=== PATIENT | male | born 1965 | race Hispanic/Latino ===

== ENCOUNTER 2017-12-29 19:15 | Emergency (ER) | payer MEDICAID ==
[2017-12-29 19:15] VITALS: BMI 34.7
[2017-12-29 19:34] VITALS: RESP 18; TEMP 98.3; O2SAT 95
[2017-12-29] MEDS ORDERED: Nitroglycerin 2% Ointment Foilpak UD TOP STA (19:36)
--- NOTE | 2017-12-29 19:47 | ED PDOC ---
Arrival/HPI - General Chief Complaint: Chest Pain Time Seen by Provider: 12/29/17 19:27 Historian: Patient - History of Present Illness Narrative History of Present Illness (Text): 12/29/17 19:34 A 52 year old male, whose past medical history includes diabetes, hypertension, multiple sclerosis, and psoriasis, presents to the emergency department complaining of intermittent chest discomfort since this afternoon. Patient describes discomfort as pressure-like sensation and non-radiating. Patient denies any associated shortness of breath fever, chills, cough, leg pain, or any other complaints at this time. No PMD Past Medical History - Provider Review Nursing Documentation Reviewed: Yes - Infectious Disease Hx of Infectious Diseases: None - Tetanus Immunization Tetanus Immunization: Unknown - Cardiac Hx Hypertension: Yes - Pulmonary Hx Respiratory Disorders: No Other/Comment: seasonal allergy - Neurological Hx Neurological Disorder: No Hx Alzheimer's Disease: No HX Cerebrovascular Accident: No Hx Dementia: No Hx Dizziness: No Hx Meningitis: No Hx Migraine: No Hx Multiple Sclerosis: Yes Hx Parkinson's Disease: No Hx Seizures: No Hx Transient Ischemic Attacks (TIA): No - HEENT Hx HEENT Disorder: No Hx Blind: No Hx Cataracts: No Hx Deafness: No Hx Difficulty Chewing: No Hx Epistaxis: No Hx Glaucoma: No Hx Macular Degeneration: No - Renal Hx Kidney Stones: Yes - Endocrine/Metabolic Hx Endocrine Disorders: No - Hematological/Oncological Hx Blood Disorders: No Hx AIDS: No Hx Anemia: No Hx Cancer: No Hx Chemotherapy: No Hx Cirrhosis: No Hx Hepatitis A: No Hx Hepatitis B: No Hx Hepatitis C: No Hx Metastasis: No Hx Shingles: No Hx Unexplained Bleeding: No - Integumentary Hx Psoriasis: Yes - Musculoskeletal/Rheumatological Hx Falls: Yes - Gastrointestinal Hx Gastrointestinal Disorders: Yes Other/Comment: polyps in colon - Genitourinary/Gynecological Hx Genitourinary Disorders: No Hx Hematuria: No Hx Incontinence: No Hx Prostate Problems: No Hx Sexually Transmitted Diseases: No Hx Urinary Tract Infection: No - Psychiatric Hx Post Traumatic Stress Disorder: Yes Hx Substance Use: No - Surgical History Other/Comment: lithotripsy. polyp removal from colon - Anesthesia Hx Anesthesia Reactions: Yes Hx Malignant Hyperthermia: No - Suicidal Assessment Feels Threatened In Home Enviroment: No Family/Social History - Physician Review Nursing Documentation Reviewed: Yes Family/Social History: No Known Family HX Smoking Status: Never Smoked Hx Alcohol Use: No Hx Substance Use: No Hx Substance Use Treatment: No Allergies/Home Meds Allergies/Adverse Reactions: Allergies No Known Allergies Allergy (Verified 05/26/16 12:53) Home Medications: Home Meds Medication Instructions Recorded Confirmed Multivitamin and Minerals1 1 tab PO DAILY 09/29/13 10/02/13 [Centrum] Cyclobenzaprine [Flexeril] 10 mg PO BID 05/26/16 05/26/16 Pantoprazole Sodium [Protonix] 40 mg PO DAILY 05/26/16 05/26/16 Primidone [Mysoline] 50 mg PO DAILY 05/26/16 05/26/16 Review of Systems - Physician Review All systems were reviewed & negative as marked: Yes - Review of Systems Constitutional: absent: Fevers, Night Sweats Respiratory: absent: SOB, Cough Cardiovascular: Chest Pain (chest discomfort) Gastrointestinal: absent: Abdominal Pain Musculoskeletal: absent: Back Pain, Neck Pain, Other (no leg pain) Physical Exam Vital Signs Reviewed: Yes Vital Signs Temp Pulse Resp BP Pulse Ox 12/29/17 21:04 100 H 198/139 H 12/29/17 20:18 101 H 18 188/139 H 95 12/29/17 19:46 107 H 211/139 H 12/29/17 19:33 98.3 F 103 H 18 212/140 H 95 Temperature: Afebrile Blood Pressure: Hypertensive Pulse: Regular Respiratory Rate: Normal Appearance: Positive for: Well-Appearing, Non-Toxic, Comfortable Pain Distress: None Mental Status: Positive for: Alert and Oriented X 3 - Systems Exam Head: Present: Atraumatic, Normocephalic Pupils: Present: PERRL Extroacular Muscles: Present: EOMI Conjunctiva: Present: Normal Mouth: Present: Moist Mucous Membranes Neck: Present: Normal Range of Motion Respiratory/Chest: Present: Clear to Auscultation, Good Air Exchange. No: Respiratory Distress, Accessory Muscle Use Cardiovascular: Present: Regular Rate and Rhythm, Normal S1, S2. No: Murmurs Abdomen: No: Tenderness, Distention, Peritoneal Signs Upper Extremity: Present: Normal Inspection. No: Cyanosis, Edema Lower Extremity: Present: Normal Inspection. No: Edema Neurological: Present: GCS=15, CN II-XII Intact, Speech Normal Skin: Present: Other (patches of psoriasis to head and lower extremities.) Psychiatric: Present: Alert, Oriented x 3, Normal Insight, Normal Concentration Medical Decision Making ED Course and Treatment: 12/29/17 19:37 Impression: 52 year old male with chest discomfort. Plan: -- EKG -- Chest X-ray -- Labs -- Aspirin -- Nitroglycerin -- Lopressor -- Reassess and disposition Progress Notes: EKG: Ordered, reviewed, and independently interpreted the EKG. Rate : 101 BPM Rhythm : Sinus tachycardia. Interpretation : LVH, non-specific St- and T- wave changes. Comparison : No previous EKG for comparison. 12/29/17 21:37 Case discussed with director medical science industrial economist, who is aware and agrees with plan. 12/29/17 21:38 Chest X-ray reviewed, shows no acute processes. Case discussed with Dr. Conn, who is aware and agrees with plan. Accepts pt in to hospitalist service. Pt will go to Telemetry observation for chest pain and uncontrolled hypertension. - Lab Interpretations Lab Results: 12/29/17 17:23 12/29/17 19:26 Lab Results 12/29/17 19:26: Sodium 139, Potassium 4.2, Chloride 97 L, Carbon Dioxide 27, Anion Gap 20, BUN 23 H, Creatinine 1.1, Est GFR ( Amer) > 60, Est GFR ( Non-Af Amer) > 60, Random Glucose 362 H* D, Calcium 9.6, Total Bilirubin 0.5, AST 50, ALT 76 H, Alkaline Phosphatase 104, Lactate Dehydrogenase 624, Total Creatine Kinase 122, Troponin I 0.02 D, Total Protein 8.3, Albumin 4.8, Globulin 3.5, Albumin/Globulin Ratio 1.4 12/29/17 17:23: WBC 8.7, RBC 5.48, Hgb 16.3, Hct 47.0, MCV 85.8, MCH 29.7, MCHC 34.7, RDW 13.2, Plt Count 212, MPV 11.0 12/29/17 17:23: PT 10.8, INR 0.95, APTT 28.6 I have reviewed the lab results: Yes - RAD Interpretation Radiology Orders: 12/29/17 19:37 CHEST PORTABLE [RAD] Stat Director Experimental Medicine: ED Physician - EKG Interpretation Interpreted by ED Physician: Yes Type: 12 lead EKG - Medication Orders Current Medication Orders: Discontinued Medications Aspirin (Aspirin) 325 mg PO ONCE STA Stop: 12/29/17 19:37 Last Admin: 12/29/17 19:46 Dose: 325 mg Clonidine HCl (Catapres) 0.2 mg PO STAT STA Stop: 12/29/17 20:49 Last Admin: 12/29/17 21:04 Dose: 0.2 mg MAR Pulse and Blood Pressure Document 12/29/17 21:04 AD (Rec: 12/29/17 21:04 AD [id number] Pulse Pulse Rate (60-90 beats/min) 100 Blood Pressure Blood Pressure (100/60-150/90 mm Hg) 198/139 Insulin Human Regular (Humulin R) 6 units SC STAT STA Stop: 12/29/17 20:49 Last Admin: 12/29/17 21:03 Dose: 6 unit MAR Blood Glucose Document 12/29/17 21:03 AD (Rec: 12/29/17 21:03 AD [id number] Blood Glucose Finger Stick Blood Glucose (70-120) 364 Subcutaneous Administrations Document 12/29/17 21:03 AD (Rec: 12/29/17 21:03 AD [id number]) Injection Site MAR Injection Site Left Arm Charges for Administration # of Subcutaneous Administrations 1 Metoprolol Tartrate (Lopressor) 50 mg PO ONCE STA Stop: 12/29/17 19:37 Last Admin: 12/29/17 19:46 Dose: 50 mg MAR Pulse and Blood Pressure Document 12/29/17 19:46 AD (Rec: 12/29/17 19:48 AD [id number] Pulse Pulse Rate (60-90 beats/min) 107 Blood Pressure Blood Pressure (100/60-150/90 mm Hg) 211/139 Nitroglycerin (Nitro-Bid 2% Oint) 1 ea TOP ONCE STA Stop: 12/29/17 19:37 Last Admin: 12/29/17 19:46 Dose: 1 ea - Scribe Statement The provider has reviewed the documentation as recorded by the Nickibshalom Jaimes Provider Scribe Provider Scribe Attestation: All medical record entries made by the Scribe were at my direction and personally dictated by me. I have reviewed the chart and agree that the record accurately reflects my personal performance of the history, physical exam, medical decision making, and the department course for this patient. I have also personally directed, reviewed, and agree with the discharge instructions and disposition. Disposition/Present on Arrival - Present on Arrival Any Indicators Present on Arrival: No History of DVT/PE: No History of Uncontrolled Diabetes: No Urinary Catheter: No History of Decub. Ulcer: No History Surgical Site Infection Following: None - Disposition Have Diagnosis and Disposition been Completed?: Yes Diagnosis: Chest pain, Uncontrolled hypertension Disposition: HOSPITALIZED Disposition Time: 21:40 Condition: STABLE Discharge Instructions (ExitCare): Chest Pain (ED) Forms: [employer] ([place])
[2017-12-29 19:56] LABS: HEMOGLOBIN 16.3 g/dL (14.0-18.0); MEAN CELL VOLUME 85.8 fl (80.0-105.0); MEAN CORPUSCULAR HEMOGLOBIN 29.7 pg (25.0-35.0); MEAN CORPUSCULAR HGB CONC 34.7 g/dl (31.0-37.0); RBC 5.48 10^6/uL (3.5-6.1); RED CELL DISTRIBUTION WIDTH 13.2 % (11.5-14.5); WHITE BLOOD COUNT 8.7 10^3/ul (4.5-11.0)
[2017-12-29 20:05] LABS: PROTHROMBIN TIME 10.8 SECONDS (9.4-12.5)
[2017-12-29 20:06] LABS: INR 0.95 (0.93-1.08); PARTIAL THROMBOPLASTIN TIME 28.6 Seconds (25.1-36.5)
[2017-12-29 20:08] LABS: ALB/GLOB RATIO 1.4 (1.1-1.8); ALBUMIN 4.8 g/dL (3.0-4.8); ALT/SGPT 76 U/L (7-56); AST/SGOT 50 U/L (17-59); BLOOD UREA NITROGEN 23 mg/dL (7-21); CALCIUM 9.6 mg/dL (8.4-10.5); GFR AFRICAN-AMERICAN > 60; GFR NON-AFRICAN AMERICAN > 60
[2017-12-29 20:17] LABS: TROPONIN I 0.02 ng/mL
[2017-12-29] MEDS ORDERED: Insulin Regular 1 UNITS/0.01 ML ML SC STA (20:48)
[2017-12-29] MEDS ORDERED: Labetalol 5 mg/ml Inj 20ML ONE (22:25)
--- NOTE | 2017-12-29 22:39 | CP.PCM.PN ---
<Noel Gambino - Last Filed: 12/29/17 22:40> Subjective - Date & Time of Evaluation Date of Evaluation: 12/29/17 Time of Evaluation: 22:30 - Subjective Subjective: Noel Gambino DO, PGY-1 IM Resident Progress Note Patient is a 52 year old male with PMH of DM2, HTN, MS, psoriasis who presented to his PCP this afternoon because he wasn't feeling right and had some chest pain. He was evaluated in the ED and recommended for admission by ED physician. When we spoke with him at the bedside, the patient refused admission and is aware that his BP is in the 230s/160s. He states that this is typical for him and refuses admission. The risks of leaving against medical advice, including CVA, loss of life or limb, and were explained in detail, and proper documentation was obtained. Prior to signing AMA paperwork, patient agreed to 20 mg of labetolol and BP was reduced to 160/110. Objective - Vital Signs/Intake and Output Vital Signs (last 24 hours): Temp Pulse Resp BP Pulse Ox 98.3 F 100 H 18 198/139 H 95 12/29/17 19:33 12/29/17 21:04 12/29/17 20:18 12/29/17 21:04 12/29/17 20:18 - Labs Labs: PT 10.8 SECONDS (9.4-12.5) 12/29/17 17:23 INR 0.95 (0.93-1.08) 12/29/17 17:23 APTT 28.6 Seconds (25.1-36.5) 12/29/17 17:23 <Greg Conn - Last Filed: 12/30/17 02:34> Objective - Vital Signs/Intake and Output Vital Signs (last 24 hours): Temp Pulse Resp BP Pulse Ox 98.3 F 89 18 168/122 H 95 12/29/17 19:33 12/29/17 22:50 12/29/17 22:50 12/29/17 22:50 12/29/17 22:50 - Labs Labs: 12/29/17 17:23 12/29/17 19:26 PT 10.8 SECONDS (9.4-12.5) 12/29/17 17:23 INR 0.95 (0.93-1.08) 12/29/17 17:23 APTT 28.6 Seconds (25.1-36.5) 12/29/17 17:23 Attending/Attestation - Attestation I have personally seen and examined this patient.: Yes I have fully participated in the care of the patient.: Yes I have reviewed all pertinent clinical information, including history, physical exam and plan: Yes Notes (Text): 12/30/17 02:34 Patient was seen in the ER in bed # 4. Agree with above documentation.
[2017-12-29 22:51] VITALS: BP 168/122; PULSE 89
--- NOTE | 2017-12-30 08:00 | RAD ---
Date of service: 12/29/2017 HISTORY: fever COMPARISON: 07/27/2015 FINDINGS: LUNGS: No active pulmonary disease. PLEURA: No significant pleural effusion identified, no pneumothorax apparent. CARDIOVASCULAR: Normal. OSSEOUS STRUCTURES: No significant abnormalities. VISUALIZED UPPER ABDOMEN: Normal. OTHER FINDINGS: None. IMPRESSION: No active disease.
--- NOTE | 2017-12-30 22:15 | CARD ---
APPROVED REPORT Date of service: 12/29/2017 EKG Measurement Heart [id number] MD [id number] <Conclusion> Sinus tachycardia Minimal voltage criteria for LVH, may be normal variant Borderline ECG
== END 2017-12-29 22:50 | disposition left against medical advice (07) ==
LOC: ED 19:15 → ERH 21:39 → UNDOADMOB 21:39 → ERH 22:10
DX: I10 Essential (primary) hypertension (principal); R07.9 Chest pain, unspecified; E11.9 Type 2 diabetes mellitus without complications; G35 Multiple sclerosis; L40.9 Psoriasis, unspecified

== ENCOUNTER 2018-08-16 20:19 | Inpatient (IN) | payer MEDICARE, MEDICAID ==
[2018-08-16 20:19] VITALS: BMI 34.7
--- NOTE | 2018-08-16 20:52 | ED PDOC ---
Arrival/HPI - General Chief Complaint: Dizziness/Lightheaded Time Seen by Provider: 08/16/18 20:20 Historian: Patient - History of Present Illness Narrative History of Present Illness (Text): 08/16/18 20:51 Phi Colón is a 53 year old male, whose past medical history includes diabetes, hypertension, multiple sclerosis, and psoriasis, who presents to the Emergency department brought in by EMS for frequent falls and shaking. Patient states he has been having frequent falls recently secondary to his multiple sclerosis and notes this evening while in the kitchen, his legs felt weak and he fell to the ground. Patient also notes some associated chest pressure. Patient notes while attempting to get back up, he felt weak again, fell backwards, and hit the back of his head against a chair. Patient notes he had generalized s haking and states he was unable to get up on his own. Patient notified EMS via his Life Alert. Patient complaining of body aches currently. Patient denies any fever, chills, shortness of breath, nausea, vomiting, diarrhea, urinary symptoms, back pain, neck pain, or any other complaints. PMD: Dr. Jay Jay Peace Symptom Onset: Gradual Symptom Course: Unchanged Activities at Onset: Light Context: Home Past Medical History - Provider Review Nursing Documentation Reviewed: Yes - Infectious Disease Hx of Infectious Diseases: None - Tetanus Immunization Tetanus Immunization: Unknown - Cardiac Hx Hypertension: Yes - Pulmonary Hx Respiratory Disorders: No Other/Comment: seasonal allergy - Neurological Hx Neurological Disorder: No Hx Alzheimer's Disease: No HX Cerebrovascular Accident: No Hx Dementia: No Hx Dizziness: No Hx Meningitis: No Hx Migraine: No Hx Multiple Sclerosis: Yes Hx Parkinson's Disease: No Hx Seizures: No Hx Transient Ischemic Attacks (TIA): No - HEENT Hx HEENT Disorder: No Hx Blind: No Hx Cataracts: No Hx Deafness: No Hx Difficulty Chewing: No Hx Epistaxis: No Hx Glaucoma: No Hx Macular Degeneration: No - Renal Hx Kidney Stones: Yes - Endocrine/Metabolic Hx Endocrine Disorders: No - Hematological/Oncological Hx Blood Disorders: No Hx AIDS: No Hx Anemia: No Hx Cancer: No Hx Chemotherapy: No Hx Cirrhosis: No Hx Hepatitis A: No Hx Hepatitis B: No Hx Hepatitis C: No Hx Metastasis: No Hx Shingles: No Hx Unexplained Bleeding: No - Integumentary Hx Psoriasis: Yes - Musculoskeletal/Rheumatological Hx Falls: Yes - Gastrointestinal Hx Gastrointestinal Disorders: Yes Other/Comment: polyps in colon - Genitourinary/Gynecological Hx Genitourinary Disorders: No Hx Hematuria: No Hx Incontinence: No Hx Prostate Problems: No Hx Sexually Transmitted Diseases: No Hx Urinary Tract Infection: No - Psychiatric Hx Post Traumatic Stress Disorder: Yes Hx Substance Use: No - Surgical History Other/Comment: lithotripsy. polyp removal from colon - Anesthesia Hx Anesthesia Reactions: Yes Hx Malignant Hyperthermia: No - Suicidal Assessment Feels Threatened In Home Enviroment: No Family/Social History - Physician Review Nursing Documentation Reviewed: Yes Family/Social History: Unknown Family HX Smoking Status: Never Smoked Hx Alcohol Use: No Hx Substance Use: No Hx Substance Use Treatment: No Allergies/Home Meds Allergies/Adverse Reactions: Allergies No Known Allergies Allergy (Verified 05/26/16 12:53) Home Medications: Home Meds Medication Instructions Recorded Confirmed Multivitamin and Minerals1 1 tab PO DAILY 09/29/13 10/02/13 [Centrum] Cyclobenzaprine [Flexeril] 10 mg PO BID 05/26/16 05/26/16 Pantoprazole Sodium [Protonix] 40 mg PO DAILY 05/26/16 05/26/16 Primidone [Mysoline] 50 mg PO DAILY 05/26/16 05/26/16 Review of Systems - Physician Review All systems were reviewed & negative as marked: Yes - Review of Systems Constitutional: Normal. absent: Fevers Eyes: Normal ENT: Normal Respiratory: Normal. absent: SOB, Cough Cardiovascular: Chest Pain Gastrointestinal: Normal. absent: Abdominal Pain, Diarrhea, Nausea, Vomiting Genitourinary Male: Normal. absent: Dysuria, Frequency, Hematuria, Urinary Output Changes Musculoskeletal: Myalgias Skin: Normal. absent: Rash Neurological: Other (+frequen falls) Endocrine: Normal Hemo/Lymphatic: Normal Psychiatric: Normal Physical Exam Vital Signs Reviewed: Yes Vital Signs Temp Pulse Resp BP Pulse Ox 08/16/18 20:35 98.1 F 115 H 20 211/145 H 95 Temperature: Afebrile Blood Pressure: Hypertensive Pulse: Tachycardic Respiratory Rate: Normal Appearance: Positive for: Well-Appearing, Non-Toxic, Comfortable Pain Distress: None Mental Status: Positive for: Alert and Oriented X 3 - Systems Exam Head: Present: Atraumatic, Normocephalic Pupils: Present: PERRL Extroacular Muscles: Present: EOMI Conjunctiva: Present: Normal Mouth: Present: Moist Mucous Membranes Neck: Present: Normal Range of Motion Respiratory/Chest: Present: Clear to Auscultation, Good Air Exchange. No: Respiratory Distress, Accessory Muscle Use Cardiovascular: Present: Regular Rate and Rhythm, Normal S1, S2. No: Murmurs Abdomen: No: Tenderness, Distention, Peritoneal Signs Back: Present: Normal Inspection Upper Extremity: Present: Normal Inspection. No: Cyanosis, Edema Lower Extremity: Present: Normal Inspection. No: Edema Neurological: Present: GCS=15, CN II-XII Intact, Speech Normal Skin: Present: Warm, Dry, Rashes (Multiple area of psoriatic rash), Normal Color Psychiatric: Present: Alert, Oriented x 3, Normal Insight, Normal Concentration Medical Decision Making ED Course and Treatment: 08/16/18 20:51 Impression: 53 year old male complaining of generalized weakness, generalized shaking s/p multiple falls. Plan: -- CT Head w/o contrast -- EKG -- Chest X-ray -- Labs, troponin, alcohol level -- Urinalysis, urine cultures -- Reassess and disposition Prior Visits: Notes and results from previous visits were reviewed. Progress Notes: Reviewed EKG, sinus tachycardia at 122 bpm. LVH. Non-specific ST/T wave changes. 08/16/18 23:16 Reviewed radiology, Chest X-ray shows no acute processes. CT Head: BRAIN There is moderate hypodensity in both periventricular, deep and subcortical white matter regions, compatible with moderate microangiopathy. This has increased in comparison with May 26, 2016. No evidence for midline shift or mass effect. No evidence for acute intracranial hemorrhage. VENTRICLES: There is mild prominence of ventricles and sulci compatible with mild atrophy. ORBITS: The orbits are unremarkable. SINUSES AND MASTOIDS: The paranasal sinuses and mastoid air cells are clear. BONES: No fracture. SOFT TISSUES: Unremarkable. MISCELLANEOUS: Again seen are chronic, lacunar infarcts at the left and right anterior subinsular regions. No convincing evidence for acute territorial infarction. IMPRESSION: 1. There is mild prominence of ventricles and sulci compatible with mild atrophy. This is little change from 2016. 2. There is moderate hypodensity in both periventricular, deep and subcortical white matter regions, compatible with moderate microangiopathy. This has increased in comparison with May 26, 2016. 3. Again seen are chronic, lacunar infarcts at the left and right anterior subinsular regions. 4. No convincing evidence for acute intracranial abnormality. Electronically signed on Aug 16, 2018 11:08:31 PM EST by: Blanco Chapa M.D., [place] Certified By [facility] Fellowship Trained MRI and CT Specialist 08/16/18 23:[address] Conn, who is aware and agrees with plan. Accepts pt in to hospitalist service. - Lab Interpretations I have reviewed the lab results: Yes - RAD Interpretation Plate Colorer: ED Physician, Radiologist - EKG Interpretation Interpreted by ED Physician: Yes Type: 12 lead EKG - Scribe Statement The provider has reviewed the documentation as recorded by the Nickibshalom Murrell Provider Scribe Attestation: All medical record entries made by the Scribe were at my direction and personally dictated by me. I have reviewed the chart and agree that the record accurately reflects my personal performance of the history, physical exam, medical decision making, and the department course for this patient. I have also personally directed, reviewed, and agree with the discharge instructions and disposition. Disposition/Present on Arrival - Present on Arrival Any Indicators Present on Arrival: No History of DVT/PE: No History of Uncontrolled Diabetes: No Urinary Catheter: No History of Decub. Ulcer: No History Surgical Site Infection Following: None - Disposition Have Diagnosis and Disposition been Completed?: Yes Diagnosis: Multiple sclerosis, Frequent falls Disposition: HOSPITALIZED Disposition Time: 23:20 Patient Problems: Current Active Problems Problem Status Onset Frequent falls Acute Shaking Acute Condition: GOOD
[2018-08-16 21:17] LABS: BASO # 0.03 K/mm3 (0.0-2.0); BASO % 0.4 % (0.0-3.0); EOS # 0.2 (0.0-0.7); EOS % 2.8 % (1.5-5.0); HEMOGLOBIN 14.6 g/dL (14.0-18.0); LYMPH # 2.3 (1.2-3.4); MEAN CELL VOLUME 84.2 fl (80.0-105.0); MEAN CORPUSCULAR HEMOGLOBIN 28.9 pg (25.0-35.0); MEAN CORPUSCULAR HGB CONC 34.4 g/dl (31.0-37.0); MEAN PLATELET VOLUME 10.4 fl (7.0-11.0); MONO # 0.5 (0.1-0.6); MONO % 6.2 % (1.0-6.0); RBC 5.05 10^6/uL (3.5-6.1); RED CELL DISTRIBUTION WIDTH 13.4 % (11.5-14.5); WHITE BLOOD COUNT 7.4 10^3/uL (4.5-11.0)
[2018-08-16 21:26] LABS: INR 1.03; PARTIAL THROMBOPLASTIN TIME 31.4 Seconds (26.9-38.3); PROTHROMBIN TIME 11.4 SECONDS (9.4-12.5)
[2018-08-16 21:27] LABS: ALB/GLOB RATIO 1.2 (1.1-1.8); ALBUMIN 4.5 g/dL (3.0-4.8); ALT/SGPT 34 U/L (7-56); AST/SGOT 39 U/L (17-59); BLOOD UREA NITROGEN 20 mg/dL (7-21); CALCIUM 9.8 mg/dL (8.4-10.5); GFR NON-AFRICAN AMERICAN 53
[2018-08-16 21:38] LABS: TROPONIN I 0.04 ng/mL
[2018-08-16] MEDS ORDERED: Labetalol 5mg/ml (4ml) ONE (23:24)
[2018-08-16] MEDS ORDERED: Labetalol 5mg/ml (4ml) IV STA (23:24)
--- NOTE | 2018-08-16 23:28 | CP.PCM.HP ---
<Nallely Greenberg - Last Filed: 08/17/18 00:40> History of Present Illness - History of Present Illness History of Present Illness: PGY1 Medicine History and Physical Exam Note for Dr. Conn CC: frequent fall/ shaking Phi Colón is a 53 year old male, whose past medical history includes diabetes, hypertension, multiple sclerosis, and psoriasis, kidney stones, colon polyps, and PTSD, who presents to the Emergency department brought in by EMS for frequent falls and shaking. Today, Patient states that he was making dinner around 6PM, when he began feeling as though his leg was shaking and "caved in," leading him to fall backwards and then forwards. Patient denies loss of consciousness, states that he anticipated the fall, and denies "blacking out." Of note, Patient is non-compliant with his medications, and states he was unable to take them today because he was cleaning his house. Patient also notes some associated chest pressure non-radiating. Patient notes he had generalized tremor and states he was unable to get up on his own. Patient states he notified EMS via his Life Alert. Patient otherwise denies shortness of breath, fever, chills, abdominal pain, nausea, vomiting, diarrhea, dysuria, back pain, neck pain, headache, numbness and/or tingling. PMH: hypertension, multiple sclerosis, psoriasis, kidney stones, colon polyps, and PTSD PSH: Polypectomy 03/2015 Medications: (Patient states he does not recall names of medications and he states he does not have a list with him) Allergies: KNDA Social Hx: Denies tobacco/EtOH/illicit drugs PMD: Dr. Jay Jay Peace Neurologist: Dr. Rogel [facility]acy: [facility] ([place]) Present on Admission - Present on Admission Any Indicators Present on Admission: No History of DVT/PE: No History of Uncontrolled Diabetes: No Urinary Catheter: No Decubitus Ulcer Present: No Review of Systems - Review of Systems All systems: reviewed and no additional remarkable complaints except (as stated in HPI) Past Patient History - Infectious Disease Hx of Infectious Diseases: None - Tetanus Immunizations Tetanus Immunization: Unknown - Past Medical History & Family History Past Medical History?: Yes - Past Social History Smoking Status: Never Smoked - CARDIAC Hx Hypertension: Yes - PULMONARY Hx Respiratory Disorders: No Other/Comment: seasonal allergy - NEUROLOGICAL Hx Neurological Disorder: No Hx Alzheimer's Disease: No HX Cerebrovascular Accident: No Hx Dementia: No Hx Dizziness: No Hx Meningitis: No Hx Migraine: No Hx Multiple Sclerosis: Yes Hx Parkinson's Disease: No Hx Seizures: No Hx Transient Ischemic Attacks (TIA): No - HEENT Hx HEENT Problems: No Hx Blind: No Hx Cataracts: No Hx Deafness: No Hx Difficulty Chewing: No Hx Epistaxis: No Hx Glaucoma: No Hx Macular Degeneration: No - RENAL Hx Kidney Stones: Yes - ENDOCRINE/METABOLIC Hx Endocrine Disorders: No - HEMATOLOGICAL/ONCOLOGICAL Hx Blood Disorders: No Hx AIDS: No Hx Anemia: No Hx Cancer: No Hx Chemotherapy: No Hx Cirrhosis: No Hx Hepatitis A: No Hx Hepatitis B: No Hx Hepatitis C: No Hx Metastesis: No Hx Shingles: No Hx Unexplained Bleeding: No - INTEGUMENTARY Hx Psoriasis: Yes - MUSCULOSKELETAL/RHEUMATOLOGICAL Hx Falls: Yes - GASTROINTESTINAL Hx Gastrointestinal Disorders: Yes Other/Comment: polyps in colon - GENITOURINARY/GYNECOLOGICAL Hx Genitourinary Disorders: No Hx Hematuria: No Hx Incontinence: No Hx Prostate Problems: No Hx Sexually Transmitted Disorders: No Hx Urinary Tract Infection: No - PSYCHIATRIC Hx Post Traumatic Stress Disorder: Yes Hx Substance Use: No - SURGICAL HISTORY Other/Comment: lithotripsy. polyp removal from colon - ANESTHESIA Hx Anesthesia Reactions: Yes Hx Malignant Hyperthermia: No Meds Allergies/Adverse Reactions: Allergies Allergy/AdvReac Type Severity Reaction Status Date / Time No Known Allergies Allergy Verified 05/26/16 12:53 Physical Exam - Constitutional Appears: Non-toxic, Unkempt Additional comments: shaking - Head Exam Head Exam: ATRAUMATIC, NORMAL INSPECTION, NORMOCEPHALIC Additional comments: psoriatic patches (erythematous, silvery scales) on forehead - Eye Exam Eye Exam: EOMI, Normal appearance, PERRL Pupil Exam: NORMAL ACCOMODATION - ENT Exam ENT Exam: Mucous Membranes Moist Additional comments: poor dentition - Neck Exam Neck exam: Positive for: Full Rom, Normal Inspection. Negative for: Tenderness, Thyromegaly Additional comments: psoriatic patches (erythematous, silvery scales) on back of neck - Respiratory Exam Respiratory Exam: Chest Wall Tenderness, Clear to Auscultation Bilateral, NORMAL BREATHING PATTERN. absent: Rales, Rhonchi, Wheezes, Respiratory Distress, Stridor - Cardiovascular Exam Cardiovascular Exam: Tachycardia, +S1, +S2. absent: Diastolic murmur, Systolic Murmur - GI/Abdominal Exam GI & Abdominal Exam: Normal Bowel Sounds, Soft. absent: Distended, Firm, Guarding, Mass, Pulsatile Mass, Tenderness - Extremities Exam Extremities exam: Positive for: normal capillary refill, pedal pulses present. Negative for: joint swelling, normal inspection, pedal edema, tenderness Additional comments: psoriatic patches (erythematous, silvery scales on extensor surfaces) - Back Exam Back exam: absent: paraspinal tenderness Additional comments: large psoriatic patches (erythematous, silvery scales) - Neurological Exam Neurological exam: Alert, CN II-XII Intact (tremors bilaterally in upper extremities ), Oriented x3 - Psychiatric Exam Psychiatric exam: Anxious - Skin Skin Exam: Dry, Rash (psoriatic patches (erythematous, silvery scales) throu ghout ) Results - Vital Signs Recent Vital Signs: Last Vital Signs Temp 98.1 F 08/16/18 20:35 Pulse 115 H 08/16/18 22:19 Resp 18 08/16/18 22:19 BP 185/74 H 08/16/18 22:19 Pulse Ox 100 08/16/18 22:19 - Labs Result Diagrams: 08/16/18 20:40 08/16/18 20:40 Labs: Laboratory Results - last 24 hr 08/16/18 08/16/18 08/16/18 20:40 20:40 20:40 WBC 7.4 RBC 5.05 Hgb 14.6 Hct 42.5 MCV 84.2 MCH 28.9 MCHC 34.4 RDW 13.4 Plt Count 216 MPV 10.4 Neut % (Auto) 59.6 Lymph % (Auto) 31.0 [place] % (Auto) 6.2 H Eos % (Auto) 2.8 Baso % (Auto) 0.4 Lymph # (Auto) 2.3 [place] # (Auto) 0.5 Eos # (Auto) 0.2 Baso # (Auto) 0.03 Absolute Neuts (auto) 4.43 PT 11.4 INR 1.03 APTT 31.4 Sodium 140 Potassium 3.3 L Chloride 99 Carbon Dioxide 31 Anion Gap 14 BUN 20 Creatinine 1.4 Est GFR ( Amer) > 60 Est GFR (Non-Af Amer) 53 POC Glucose (mg/dL) Random Glucose 292 H Calcium 9.8 Total Bilirubin 0.3 AST 39 ALT 34 Alkaline Phosphatase 87 Troponin I 0.04 D Total Protein 8.3 Albumin 4.5 Globulin 3.8 Albumin/Globulin Ratio 1.2 Alcohol, Quantitative 08/16/18 08/16/18 20:40 21:08 WBC RBC Hgb Hct MCV MCH MCHC RDW Plt Count MPV Neut % (Auto) Lymph % (Auto) [place] % (Auto) Eos % (Auto) Baso % (Auto) Lymph # (Auto) [place] # (Auto) Eos # (Auto) Baso # (Auto) Absolute Neuts (auto) PT INR APTT Sodium Potassium Chloride Carbon Dioxide Anion Gap BUN Creatinine Est GFR ( Amer) Est GFR (Non-Af Amer) POC Glucose (mg/dL) 283 H Random Glucose Calcium Total Bilirubin AST ALT Alkaline Phosphatase Troponin I Total Protein Albumin Globulin Albumin/Globulin Ratio Alcohol, Quantitative < 10 Assessment & Plan - Assessment and Plan (Free Text) Assessment: Phi Colón is a 53 year old male, whose past medical history includes diabetes, hypertension, multiple sclerosis, and psoriasis, kidney stones, colon polyps, and PTSD, who presents to the Emergency department brought in by EMS for frequent falls and shaking. S/P Fall in the setting of Tremor Likely Secondary to MS - Patient is non-compliant with medications; did not take medications today - Consult neurology (Dr. Hernandez); recommendations appreciated - Neuro checks Q4 - EKG: sinus tachycardia at [address]pm[address] LVH. Non-specific ST/T wave changes - CT head without contrast: * There is mild prominence of ventricles and sulci compatible with mild atrophy. This is little change from 2016. * There is moderate hypodensity in both periventricular, deep and subcortical white matter regions, compatible with moderate microangiopathy * Again seen are chronic, lacunar infarcts at the left and right anterior subinsular regions * No convincing evidence for acute intracranial abnormality - Monitor in telemetry - F/U morning labs: HgbA1C, CBC, CMP, Mg, Phos - F/U UDS - Monitor in telemetry Hypertensive Urgency - BP 211/145 - Vitals q4 - Home meds from previous admission: clonidine. lopressor, HCTZ, norvasc, spiron olactone (not confirmed) - Start: Clonidine 0.1mg PO TID - Start: Lopressor 25mg PO BID - Start: Norvasc 10mg PO Daily - Hydralazine 10mg IV q6 PRN for SBP >180; HOLD for HR < 60bpm - Healthy heart diet (low carb) ACS rule-out - EKG: sinus tachycardia at [address]pm. LVH. Non-specific ST/T wave changes - First Troponin 0.04 - F/U Troponin Q6H @ 02:44, @ 08:44 - F/U Repeat EKG Q6H as per above timing - F/U HgbA1C - F/U TSH - Cardiology consulted (Dr. Cooley) ; recommendations appreciated - Monitor in telemetry Diabetes Mellitus Type 2, uncontrolled - Hold Home meds - Start ISS- high - Hypoglycemia protocol - Accu checks ACHS - Healthy heart (low carb) diet Hypokalemia, 3.3 - Repleted - follow up on AM CMP - Replace as needed Psoriasis - Topical cortisone cream PRN Prophylaxis - DVT: Lovenox 40mg SC - GI: Protonix 40mg Daily Discussed with Dr. Senia Greenberg PGY1 Decision To Admit - . Bed Request Type: Telemetry <Greg Conn - Last Filed: 08/20/18 06:28> Results - Vital Signs Recent Vital Signs: Last Vital Signs Temp 97.6 F 08/19/18 18:00 Pulse 82 08/20/18 02:00 Resp 20 08/19/18 18:00 BP 143/90 08/19/18 18:00 Pulse Ox 96 08/19/18 05:52 - Labs Result Diagrams: 08/19/18 08:30 08/19/18 08:30 Labs: Laboratory Results - last 24 hr 08/19/18 08/19/18 08:30 08:30 WBC 13.5 H D RBC 5.04 Hgb 14.8 Hct 42.6 MCV 84.5 MCH 29.4 MCHC 34.7 RDW 13.2 Plt Count 223 MPV 10.9 Neut % (Auto) 91.2 H Lymph % (Auto) 7.8 L [place] % (Auto) 0.9 L Eos % (Auto) 0.0 L Baso % (Auto) 0.1 Lymph # (Auto) 1.1 L [place] # (Auto) 0.1 Eos # (Auto) 0.0 Baso # (Auto) 0.01 Absolute Neuts (auto) 12.34 H Neutrophils % (Manual) 95 H Lymphocytes % (Manual) 3 L Monocytes % (Manual) 2 Platelet Evaluation Normal Sodium 137 Potassium 3.9 Chloride 98 Carbon Dioxide 25 Anion Gap 18 BUN 29 H Creatinine 1.3 Est GFR ( Amer) > 60 Est GFR (Non-Af Amer) 58 Random Glucose 364 H* D Calcium 9.8 Total Bilirubin 0.6 AST 34 ALT 27 Alkaline Phosphatase 71 Total Protein 8.1 Albumin 4.4 Globulin 3.7 Albumin/Globulin Ratio 1.2 Attending/Attestation - Attestation I have personally seen and examined this patient.: Yes I have fully participated in the care of the patient.: Yes I have reviewed all pertinent clinical information: Yes
[2018-08-17] MEDS ORDERED: Potassium Chloride 20 mEq ER Tab PO STA (00:16)
[2018-08-17] MEDS ORDERED: Dextrose 50% SYRINGE Inj (50 ml) IV PRN (00:22)
[2018-08-17 00:57] LABS: PH,URINE 6.5 (4.7-8.0); URINE APPEARANCE SL CLOUDY (CLEAR); URINE BILIRUBIN NEGATIVE (NEGATIVE); URINE BLOOD MODERATE (NEGATIVE); URINE COLOR YELLOW (YELLOW); URINE GLUCOSE (UA) >=1000 mg/dL (NEGATIVE); URINE LEUKOCYTE ESTERASE NEGATIVE Leu/uL (NEGATIVE); URINE PROTEIN 100 mg/dL (<30 mg/dL); URINE UROBILINOGEN 0.2 E.U./dL (<1 E.U./dL)
[2018-08-17 01:09] LABS: URINE BACTERIA RARE /hpf; URINE EPITHELIAL CELLS 0 - 2 /hpf (0-5)
[2018-08-17 02:11] LABS: BARBITURATES, UR NEGATIVE (NEGATIVE); BENZODIAZEPINES, UR NEGATIVE (NEGATIVE); OPIATES, UR POSITIVE (NEGATIVE); PHENCYCLIDINE, UR NEGATIVE (NEGATIVE)
[2018-08-17] MEDS: Pantoprazole 40 mg EC Tab PO SCH (05:48)
[2018-08-17] MEDS: Insulin Regular 1 UNITS/0.01 ML ML SC SCH ×4 (08:19→22:00)
--- NOTE | 2018-08-17 08:22 | CT ---
Date of service: 08/16/2018 PROCEDURE: CT HEAD WITHOUT CONTRAST. HISTORY: near syncope COMPARISON: 05/26/2016 TECHNIQUE: Axial computed tomography images were obtained through the head/brain without intravenous contrast. Radiation dose: Total exam DLP = 998.62 mGy-cm. This CT exam was performed using one or more of the following dose reduction techniques: Automated exposure control, adjustment of the mA and/or kV according to patient size, and/or use of iterative reconstruction technique. FINDINGS: HEMORRHAGE: No intracranial hemorrhage. BRAIN: No mass effect or edema. Chronic microvascular changes are seen in the periventricular white matter and basal ganglia. Mild atrophy VENTRICLES: Unremarkable. No hydrocephalus. CALVARIUM: Unremarkable. PARANASAL SINUSES: Unremarkable as visualized. No significant inflammatory changes. MASTOID AIR CELLS: Unremarkable as visualized. No inflammatory changes. OTHER FINDINGS: The report concurs with the preliminary [facility] report IMPRESSION: No acute intracranial findings
[2018-08-17] MEDS: Potassium Chloride 20 mEq ER Tab PO SCH ×2 (09:35→14:23)
[2018-08-17] MEDS: Enoxaparin 40 mg Syringe SC SCH (09:37)
--- NOTE | 2018-08-17 09:45 | RAD ---
Date of service: 08/16/2018 HISTORY: fall COMPARISON: Portable chest 12/29/2017. FINDINGS: LUNGS: No active pulmonary disease. PLEURA: No significant pleural effusion identified, no pneumothorax apparent. CARDIOVASCULAR: No aortic atherosclerotic calcification present. Cardiac silhouette appears stable. No pulmonary vascular congestion. OSSEOUS STRUCTURES: No significant abnormalities. VISUALIZED UPPER ABDOMEN: Normal. OTHER FINDINGS: None. IMPRESSION: No interval acute cardiopulmonary disease appreciated.
--- NOTE | 2018-08-17 10:03 | CARD ---
APPROVED REPORT Date of service: 08/16/2018 EKG Measurement Heart [id number] <Conclusion> Sinus tachycardia Moderate voltage criteria for LVH, may be normal variant Nonspecific ST and T wave abnormality Abnormal ECG
[2018-08-17 11:29] LABS: BLOOD UREA NITROGEN 20 mg/dL (7-21); CALCIUM 9.4 mg/dL (8.4-10.5); GFR NON-AFRICAN AMERICAN 58
--- NOTE | 2018-08-17 11:36 | CP.PCM.CON ---
History of Present Illness - History of Present Illness History of Present Illness: Neurology Consultation Note: Consult requested by Dr. Marlene Shelton Mr. Colón is a 53-year-old man with a past medical history of DM, hypertension, multiple sclerosis, and psoriasis, kidney stones, colon polyps, and PTSD, who presented to the ED yesterday complaining of lower extremity weakness and falling. He said while standing and cooking, his legs gave out on him and he fell. He also noted that his right leg was shaking prior to him falling. He has increased shaking and tremors as well. He has chronic spasms from MS. CT he ad did not show any concerning findings acutely. The patient states that he used to be on seizure medications, but he is not sure if he ever had seizures. Review of Systems - Constitutional Constitutional: As Per HPI - EENT Eyes: absent: As Per HPI, Blind Spots, Blurred Vision, Change in Vision, Decreased Night Vision, Diplopia, Discharge, Dry Eye, Exophthalmos, Floaters, Irritation, Itchy Eyes, Loss of Peripheral Vision, Pain, Photophobia, Requires Corrective Lenses, Sees Flashes, Spots in Vision, Tunnel Vision, Other Visual Disturbances, Loss of Vision, Other Ears: absent: As Per HPI, Decreased Hearing, Ear Discharge, Ear Pain, Tinnitus, Abnormal Hearing, Disequilibrium, Dizziness, Other Nose/Mouth/Throat: absent: As Per HPI, Epistaxis, Nasal Congestion, Nasal Discharge, Nasal Obstruction, Nasal Trauma, Nose Pain, Post Nasal Drip, Sinus Pain, Sinus Pressure, Bleeding Gums, Change in Voice, Dental Pain, Dry Mouth, Dysphagia, Halitosis, Hoarsness, Lip Swelling, Mouth Lesions, Mouth Pain, Odynophagia, Sore Throat, Throat Swelling, Tongue Swelling, Facial Pain, Neck Pain, Neck Mass, Other - Cardiovascular Cardiovascular: absent: As Per HPI, Acrocyanosis, Chest Pain, Chest Pain at Rest, Chest Pain with Activity, Claudication, Diaphoresis, Dyspnea, Dyspnea on Exertion, Edema, Irregular Heart Rhythm, Pain Radiating to Arm/Neck/Jaw, Leg Edema, Leg Ulcers, Lightheadedness, Orthopnea, Palpitations, Paroxysmal Nocturnal Dyspnea, Pedal Edema, Radiating Pain, Rapid Heart Rate, Slow Heart Rat e, Syncope, Other - Respiratory Respiratory: absent: As Per HPI, Cough, Dyspnea, Hemoptysis, Dyspnea on Exertion, Wheezing, Snoring, Stridor, Pain on Inspiration, Chest Congestion, Excessive Mucous Production, Change in Mucous Color, Pain with Coughing, Other - Gastrointestinal Gastrointestinal: absent: As Per HPI, Abdominal Pain, Belching, Bloating, Change in Bowel Habits, Change in Stool Character, Coffee Ground Emesis, Constipation, Cramping, Diarrhea, Dyspepsia, Dysphagia, Early Satiety, Excessive Flatus, Fecal Incontinence, Heartburn, Hematemesis, Hematochezia, Loose Stools, Melena, Nausea, Odynophagia, Temesmus, Vomiting, Other - Musculoskeletal Musculoskeletal: As Per HPI - Neurological Neurological: As Per HPI - Psychiatric Psychiatric: absent: As Per HPI, Abnormal Sleep Pattern, Anhedonia, Anxiety, Auditory Hallucinations, Behavioral Changes, Change in Appetite, Change in Libido, Confusion, Depression, Difficulty Concentrating, Hallucinations, Homicidal Ideation, Hopelessness, Irritability, Memory Loss, Mood Swings, Panic Attacks, Paranoia, Suicidal Ideation, Visual Hallucinations, Tactile Hallucinations, Other - Endocrine Endocrine: absent: As Per HPI, Change in Body Appearance, Change in Libido, Cold Intolorance, Deepening of Voice, Excessive Sweating, Fatigue, Flushing, Heat Intolorance, Increase in Ring/Shoe/Hat Size, Palpitations, Polydipsia, Polyphagia, Polyuria, Other - Hematologic/Lymphatic Hematologic: absent: As Per HPI, Easy Bleeding, Easy Bruising, Lymphadenopathy, Other Past Patient History - Infectious Disease Hx of Infectious Diseases: None - Tetanus Immunizations Tetanus Immunization: Unknown - Past Medical History & Family History Past Medical History?: Yes - Past Social History Smoking Status: Never Smoked - CARDIAC Hx Cardiac Disorders: Yes Hx Hypertension: Yes - PULMONARY Hx Respiratory Disorders: No (seasonal allergy) - NEUROLOGICAL Hx Neurological Disorder: Yes (MS) Hx Alzheimer's Disease: No HX Cerebrovascular Accident: No Hx Dementia: No Hx Dizziness: Yes Hx Meningitis: No Hx Migraine: No Hx Parkinson's Disease: No Hx Seizures: No Hx Transient Ischemic Attacks (TIA): No - HEENT Hx HEENT Problems: Yes (uses glasses reading /distance) - RENAL Hx Chronic Kidney Disease: Yes (lithotripsy) Hx Kidney Stones: Yes - ENDOCRINE/METABOLIC Hx Endocrine Disorders: Yes Hx Diabetes Mellitus Type 2: Yes - HEMATOLOGICAL/ONCOLOGICAL Hx Blood Disorders: No (denies) Hx AIDS: No Hx Anemia: No Hx Cancer: No Hx Chemotherapy: No Hx Cirrhosis: No Hx Hepatitis A: No Hx Hepatitis B: No Hx Hepatitis C: No Hx Metastesis: No Hx Shingles: No Hx Unexplained Bleeding: No - INTEGUMENTARY Hx Dermatological Problems: Yes Hx Psoriasis: Yes (over the whole body) - MUSCULOSKELETAL/RHEUMATOLOGICAL Hx Falls: Yes - GASTROINTESTINAL Hx Gastrointestinal Disorders: Yes (colon polyps and was remved) - GENITOURINARY/GYNECOLOGICAL Hx Genitourinary Disorders: No Hx Hematuria: No Hx Incontinence: No Hx Prostate Problems: No Hx Sexually Transmitted Disorders: No Hx Urinary Tract Infection: No - PSYCHIATRIC Hx Substance Use: No - SURGICAL HISTORY Hx Surgeries: No (polypectomy/lithotripsy) Hx Cardiac Catheterization: Yes (negative) - ANESTHESIA Hx Anesthesia Reactions: Yes Hx Malignant Hyperthermia: No Meds Allergies/Adverse Reactions: Allergies Allergy/AdvReac Type Severity Reaction Status Date / Time No Known Allergies Allergy Verified 05/26/16 12:53 - Medications Medications: Current Medications Amlodipine Besylate (Norvasc) 10 mg PO DAILY [facility] Last Admin: 08/17/18 09:37 Dose: 10 mg Clonidine HCl (Catapres) 0.1 mg PO TID [facility] Last Admin: 08/17/18 09:37 Dose: 0.1 mg Dextrose (Dextrose 50% Inj) 0 ml IV STAT PRN; Protocol PRN Reason: Hypoglycemia Protocol Enoxaparin Sodium (Lovenox) 40 mg SC DAILY [facility]; Protocol Last Admin: 08/17/18 09:37 Dose: 40 mg Hydralazine HCl (Apresoline) 10 mg IVP Q6 PRN PRN Reason: Systolic Blood Pressure Dextrose (Dextrose 5% In Water 1000 Ml) 1,000 mls @ 0 mls/hr IV .Q0M PRN; Protocol PRN Reason: Hypoglycemia Protocol Insulin Human Regular (Humulin R) 0 units SC ACHS [facility]; Protocol Last Admin: 08/17/18 08:19 Dose: 2 units Metoprolol Tartrate (Lopressor) 25 mg PO BID [facility] Last Admin: 08/17/18 09:36 Dose: 25 mg Pantoprazole Sodium (Protonix Ec Tab) 40 mg PO 0600 [facility] Last Admin: 08/17/18 05:48 Dose: 40 mg Potassium Chloride (K-Dur 20 Meq Er Tab) 40 meq PO Q6H [facility] Stop: 08/17/18 15:16 Last Admin: 08/17/18 09:35 Dose: 40 meq Physical Exam - Constitutional Appears: Well - Head Exam Head Exam: ATRAUMATIC, NORMAL INSPECTION, NORMOCEPHALIC - Eye Exam Eye Exam: EOMI, Normal appearance, PERRL Pupil Exam: NORMAL ACCOMODATION, PERRL - ENT Exam ENT Exam: Mucous Membranes Moist, Normal Exam - Neck Exam Neck exam: Positive for: Normal Inspection - Respiratory Exam Respiratory Exam: Clear to Auscultation Bilateral, NORMAL BREATHING PATTERN - Cardiovascular Exam Cardiovascular Exam: REGULAR RHYTHM, +S1, +S2 - GI/Abdominal Exam GI & Abdominal Exam: Normal Bowel Sounds, Soft. absent: Tenderness - Extremities Exam Extremities exam: Positive for: normal inspection - Back Exam Back exam: NORMAL INSPECTION - Neurological Exam Neurological exam: Abnormal Gait, Alert, CN II-XII Intact, Oriented x3 Additional comments: Reflexes are brisk throughout out. Generalized weakness and spasticity mostly noted in lower extremities. - Psychiatric Exam Psychiatric exam: Normal Affect, Normal Mood - Skin Skin Exam: Dry, Intact, Normal Color, Warm Results - Vital Signs Recent Vital Signs: Last Vital Signs Temp 97.7 F 08/17/18 05:54 Pulse 98 H 08/17/18 10:00 Resp 20 08/17/18 05:54 BP 140/84 08/17/18 09:37 Pulse Ox 94 L 08/17/18 05:54 - Labs Result Diagrams: 08/16/18 20:40 08/17/18 10:44 Labs: Laboratory Results - last 24 hr 08/16/18 08/16/18 08/16/18 20:40 20:40 20:40 WBC 7.4 RBC 5.05 Hgb 14.6 Hct 42.5 MCV 84.2 MCH 28.9 MCHC 34.4 RDW 13.4 Plt Count 216 MPV 10.4 Neut % (Auto) 59.6 Lymph % (Auto) 31.0 [place] % (Auto) 6.2 H Eos % (Auto) 2.8 Baso % (Auto) 0.4 Lymph # (Auto) 2.3 [place]field # (Auto) 0.5 Eos # (Auto) 0.2 Baso # (Auto) 0.03 Absolute Neuts (auto) 4.43 PT 11.4 INR 1.03 APTT 31.4 Sodium 140 Potassium 3.3 L Chloride 99 Carbon Dioxide 31 Anion Gap 14 BUN 20 Creatinine 1.4 Est GFR ( Amer) > 60 Est GFR (Non-Af Amer) 53 POC Glucose (mg/dL) Random Glucose 292 H Calcium 9.8 Magnesium Total Bilirubin 0.3 AST 39 ALT 34 Alkaline Phosphatase 87 Troponin I 0.04 D Total Protein 8.3 Albumin 4.5 Globulin 3.8 Albumin/Globulin Ratio 1.2 Urine Color Urine Appearance Urine pH Ur Specific [place] Urine Protein Urine Glucose (UA) Urine Ketones Urine Blood Urine Nitrate Urine Bilirubin Urine Urobilinogen Ur Leukocyte Esterase Urine RBC Urine WBC Ur Epithelial Cells Urine Bacteria Urine Opiates Screen Urine Methadone Screen Ur Barbiturates Screen Ur Phencyclidine Scrn Ur Amphetamines Screen U Benzodiazepines Scrn U Oth Cocaine Metabols U Cannabinoids Screen Alcohol, Quantitative 08/16/18 08/16/18 08/17/18 20:40 21:08 00:42 WBC RBC Hgb Hct MCV MCH MCHC RDW Plt Count MPV Neut % (Auto) Lymph % (Auto) [place] % (Auto) Eos % (Auto) Baso % (Auto) Lymph # (Auto) [place] # (Auto) Eos # (Auto) Baso # (Auto) Absolute Neuts (auto) PT INR APTT Sodium Potassium Chloride Carbon Dioxide Anion Gap BUN Creatinine Est GFR ( Amer) Est GFR (Non-Af Amer) POC Glucose (mg/dL) 283 H Random Glucose Calcium Magnesium Total Bilirubin AST ALT Alkaline Phosphatase Troponin I Total Protein Albumin Globulin Albumin/Globulin Ratio Urine Color Yellow Urine Appearance Sl cloudy Urine pH 6.5 Ur Specific [place] >= 1.030 Urine Protein 100 H Urine Glucose (UA) >=1000 Urine Ketones Negative Urine Blood Moderate H Urine Nitrate Negative Urine Bilirubin Negative Urine Urobilinogen 0.2 Ur Leukocyte Esterase Negative Urine RBC 2 - 5 H Urine WBC 1 - 3 Ur Epithelial Cells 0 - 2 Urine Bacteria Rare Urine Opiates Screen Urine Methadone Screen Ur Barbiturates Screen Ur Phencyclidine Scrn Ur Amphetamines Screen U Benzodiazepines Scrn U Oth Cocaine Metabols U Cannabinoids Screen Alcohol, Quantitative < 10 08/17/18 08/17/18 08/17/18 00:42 09:00 10:44 WBC RBC Hgb Hct MCV MCH MCHC RDW Plt Count MPV Neut % (Auto) Lymph % (Auto) [place] % (Auto) Eos % (Auto) Baso % (Auto) Lymph # (Auto) [place] # (Auto) Eos # (Auto) Baso # (Auto) Absolute Neuts (auto) PT INR APTT Sodium 140 Potassium 3.4 L Chloride 103 Carbon Dioxide 28 Anion Gap 13 BUN 20 Creatinine 1.3 Est GFR ( Amer) > 60 Est GFR (Non-Af Amer) 58 POC Glucose (mg/dL) Random Glucose 224 H Calcium 9.4 Magnesium 1.8 Total Bilirubin AST ALT Alkaline Phosphatase Troponin I 0.05 D Total Protein Albumin Globulin Albumin/Globulin Ratio Urine Color Urine Appearance Urine pH Ur Specific [place] Urine Protein Urine Glucose (UA) Urine Ketones Urine Blood Urine Nitrate Urine Bilirubin Urine Urobilinogen Ur Leukocyte Esterase Urine RBC Urine WBC Ur Epithelial Cells Urine Bacteria Urine Opiates Screen Positive H Urine Methadone Screen Negative Ur Barbiturates Screen Negative Ur Phencyclidine Scrn Negative Ur Amphetamines Screen Negative U Benzodiazepines Scrn Negative U Oth Cocaine Metabols Negative U Cannabinoids Screen Negative Alcohol, Quantitative Assessment & Plan (1) Frequent falls Assessment and Plan: Will evaluate for possible seizures since these events were associated with shaking as well. EEG is recommended. Status: Acute (2) Shaking Assessment and Plan: Will rule out seizures. Will start Keppra 500 mg BID if EEG is positive. Status: Acute (3) Multiple sclerosis Assessment and Plan: This could be an MS exacerbation. I recommend obtaining an MRI of the brain with and without contrast. Continue treating possible medical condition that contributed to exacerbation. Thank you for this consultation. Status: Chronic
--- NOTE | 2018-08-17 11:37 | CARD ---
APPROVED REPORT Date of service: 08/17/2018 EKG Measurement Heart [id number] <Conclusion> Normal sinus rhythm Moderate voltage criteria for LVH, may be normal variant Nonspecific T wave abnormality Abnormal ECG
--- NOTE | 2018-08-17 14:56 | CP.PCM.PN ---
<Paula Harris - Last Filed: 08/17/18 15:33> Subjective - Date & Time of Evaluation Date of Evaluation: 08/17/18 Time of Evaluation: 14:51 - Subjective Subjective: Paula Harris, PGY-1, Internal Medicine Progress Note for Dr. Ryan Patient seen and evaluated at bedside. Patient reported that he was walking without his walker or any aide and fell backwards and then forwards. Patient then had lower extremity weakness and was unable to ambulate. Patient subsequently came to the emergency department. Patient reports chronic migranes, change in his vision, chest pain for a few weeks with shortness of breath, abdominal pain for 1 week, and dysuria, but no hematuria. Patient continues to have bilateral lower extremity weakness with left leg being more numb than right leg. 12-point ROS was unremarkable except for what was mentioned in above. Objective - Vital Signs/Intake and Output Vital Signs (last 24 hours): Temp Pulse Resp BP Pulse Ox 98.9 F 84 19 174/96 H 94 L 08/17/18 12:00 08/17/18 14:18 08/17/18 12:00 08/17/18 14:18 08/17/18 05:54 - Medications Medications: Current Medications Amlodipine Besylate (Norvasc) 10 mg PO DAILY [facility] Last Admin: 08/17/18 09:37 Dose: 10 mg Clonidine HCl (Catapres) 0.1 mg PO TID [facility] Last Admin: 08/17/18 14:18 Dose: 0.1 mg Dextrose (Dextrose 50% Inj) 0 ml IV STAT PRN; Protocol PRN Reason: Hypoglycemia Protocol Enoxaparin Sodium (Lovenox) 40 mg SC DAILY [facility]; Protocol Last Admin: 08/17/18 09:37 Dose: 40 mg Hydralazine HCl (Apresoline) 10 mg IVP Q6 PRN PRN Reason: Systolic Blood Pressure Dextrose (Dextrose 5% In Water 1000 Ml) 1,000 mls @ 0 mls/hr IV .Q0M PRN; Protocol PRN Reason: Hypoglycemia Protocol Insulin Human Regular (Humulin R) 0 units SC ACHS [facility]; Protocol Last Admin: 08/17/18 14:22 Dose: 2 units Metoprolol Tartrate (Lopressor) 25 mg PO BID [facility] Last Admin: 08/17/18 09:36 Dose: 25 mg Pantoprazole Sodium (Protonix Ec Tab) 40 mg PO 0600 [facility] Last Admin: 08/17/18 05:48 Dose: 40 mg Potassium Chloride (K-Dur 20 Meq Er Tab) 40 meq PO Q6H [facility] Stop: 08/17/18 15:16 Last Admin: 08/17/18 14:23 Dose: 40 meq - Labs Labs: 08/16/18 20:40 08/17/18 10:44 PT 11.4 SECONDS (9.4-12.5) 08/16/18 20:40 INR 1.03 08/16/18 20:40 APTT 31.4 Seconds (26.9-38.3) 08/16/18 20:40 - Constitutional Appears: Well, Non-toxic, No Acute Distress - Head Exam Head Exam: ATRAUMATIC, NORMAL INSPECTION, NORMOCEPHALIC - Eye Exam Eye Exam: EOMI, PERRL - ENT Exam ENT Exam: Mucous Membranes Moist - Respiratory Exam Respiratory Exam: Clear to Ausculation Bilateral, NORMAL BREATHING PATTERN - Cardiovascular Exam Cardiovascular Exam: REGULAR RHYTHM, RRR - GI/Abdominal Exam GI & Abdominal Exam: Soft, Tenderness, Normal Bowel Sounds - Extremities Exam Additional comments: +3/5 strength testing of bilateral lower extremities, +5/5 strength testing of bilateral upper extremities however has diffuse tremors with movement. No tremors at rest. - Neurological Exam Neurological Exam: Alert, Awake, CN II-XII Intact, Oriented x3 Neuro motor strength exam: Left Upper Extremity: 5, Right Upper Extremity: 5, Left Lower Extremity: 3, Right Lower Extremity: 3 Additional comments: Failed finger to nose test - Skin Additional comments: psoriatic rash of back, left wrist, and right elbow Assessment and Plan - Assessment and Plan (Free Text) Assessment: 53 year old male with past medical history of diabetes mellitus type II, hypertension, multiple sclerosis, psoriasis, kidney stones, colon polyps, and PTSD presented to the emergency department for frequent falls and worsening of tremors likely 2/2 to multiple sclerosis exacerbation. Plan: Frequent falls and shaking 2/2 to MS exacerbation vs. seizures vs. essential tremors vs. vertigo -Patient has been having frequent falls and shaking at home which could be related to this. However, patient has not had tongue biting, urinary and bowel incontinence -Follow up EEG to evaluate for seizure and other abnormal brain activity -Follow up MRI of brain with and without contrast to evaluate for MS e xacerbation -Will restart home primidone for essential tremors -Will restart home meclizine for vertigo Generalized back pain -Will restart home flexeril Psoriasis -Continue home hydrocortisone 1 gm BID Diabetes mellitus type II -Follow up HgbA1c -Continue with SSI Hypertension -Continue with home norvasc, catapres, metoprolol tartrate 25 mg BID -Started apresoline 10 mg Q6PRN for BP>160/110 Hematuria -Likely 2/2 to history of kidney stones Hypokalemia -Replete as necessary Substance abuse -UDS positive for opiates -Patient denied using recreational drugs -COWS score was 4. No indication of significant withdrawal at this time. GI prophylaxis: protonix 40 mg daily DVT prophylaxis: lovenox 40 mg daily Patient plan discussed with attending. <Beatriz Ryan - Last Filed: 08/22/18 15:05> Objective - Vital Signs/Intake and Output Vital Signs (last 24 hours): Temp Pulse Resp BP Pulse Ox 97.6 F 80 20 140/100 H 96 08/22/18 08:14 08/22/18 12:48 08/22/18 08:14 08/22/18 12:48 08/22/18 08:14 Intake and Output: 08/22/18 08/22/18 06:59 18:59 Intake Total 1340 Balance 1340 - Medications Medications: Current Medications Acetaminophen (Tylenol 325mg Tab) 650 mg PO Q6H PRN PRN Reason: Headache Last Admin: 08/22/18 12:46 Dose: 650 mg Amlodipine Besylate (Norvasc) 10 mg PO DAILY [facility] Last Admin: 08/22/18 10:05 Dose: 10 mg Aspirin (Aspirin Chewable) 81 mg PO DAILY [facility] Last Admin: 08/22/18 10:01 Dose: 81 mg Atorvastatin Calcium (Lipitor) 40 mg PO DIN [facility] Last Admin: 08/21/18 17:18 Dose: 40 mg Betamethasone Dipropion Augmented (Diprolene Af) 0 gm TOP BID [facility] Last Admin: 08/22/18 10:05 Dose: Not Given Clonazepam (Klonopin) 0.5 mg PO HS PRN; Protocol PRN Reason: Insomnia Last Admin: 08/19/18 09:07 Dose: 0.5 mg Clonidine HCl (Catapres) 0.1 mg PO TID [facility] Last Admin: 08/22/18 10:02 Dose: 0.1 mg Cyclobenzaprine HCl (Flexeril) 10 mg PO BID [facility] Last Admin: 08/18/18 17:47 Dose: 10 mg Dextrose (Dextrose 50% Inj) 0 ml IV STAT PRN; Protocol PRN Reason: Hypoglycemia Protocol Enoxaparin Sodium (Lovenox) 40 mg SC DAILY [facility]; Protocol Last Admin: 08/22/18 10:04 Dose: 40 mg Ergocalciferol (Drisdol 50,000 Intl Units Cap) 1 cap PO Q7D [facility] Last Admin: 08/18/18 16:19 Dose: 1 cap Hydralazine HCl (Apresoline) 10 mg IVP Q6 PRN PRN Reason: Systolic Blood Pressure Last Admin: 08/19/18 14:52 Dose: 10 mg Dextrose (Dextrose 5% In Water 1000 Ml) 1,000 mls @ 0 mls/hr IV .Q0M PRN; Protocol PRN Reason: Hypoglycemia Protocol Insulin Detemir (Levemir) 10 unit SC BID [facility] Last Admin: 08/22/18 10:08 Dose: 10 units Insulin Human Lispro (Humalog) 7 units SC AC [facility] Last Admin: 08/22/18 12:27 Dose: 7 units Insulin Human Regular (Humulin R) 0 units SC ACHS [facility]; Protocol Last Admin: 08/22/18 12:26 Dose: 7 units Lisinopril (Zestril) 40 mg PO DAILY [facility] Meclizine HCl (Antivert) 12.5 mg PO DAILY PRN PRN Reason: Dizziness Metoprolol Tartrate (Lopressor) 50 mg PO BID [facility] Last Admin: 08/22/18 10:03 Dose: 50 mg Pantoprazole Sodium (Protonix Ec Tab) 40 mg PO 0600 [facility] Last Admin: 08/22/18 06:08 Dose: 40 mg Primidone (Mysoline) 50 mg PO DAILY [facility] Last Admin: 08/22/18 10:04 Dose: 50 mg - Labs Labs: 08/22/18 08:50 08/22/18 08:50 PT 11.4 SECONDS (9.4-12.5) 08/16/18 20:40 INR 1.03 08/16/18 20:40 APTT 31.4 Seconds (26.9-38.3) 08/16/18 20:40 Attending/Attestation - Attestation I have personally seen and examined this patient.: Yes I have fully participated in the care of the patient.: Yes I have reviewed all pertinent clinical information, including history, physical exam and plan: Yes Notes (Text): 08/22/18 15:04 Medical record note made by the resident after discussion with my direction and input after the patient was personally seen and examined by me. I have reviewed the chart and agree that the record accurately reflects by personal performance of the history, physical exam, data review, and medical decision-making, in the course for the patient. I have also personally directed the plan of care. 53-year-old man with a past medical history of DM, hypertension, multiple sclerosis, and psoriasis, kidney stones, colon polyps, and PTSD, who presented to the ED yesterday complaining of lower extremity weakness and falling. Patient is shaking and very unsteady.MRI brain is pending, concern for MS exacerbation.Neurology is following.
[2018-08-17] MEDS: Hydrocortisone 1% Cream (30 GM) TOP SCH (17:16)
[2018-08-17] MEDS ORDERED: Hydrocortisone 1% Cream (30 GM) TOP SCH (18:00)
--- NOTE | 2018-08-17 20:49 | CON ---
DATE OF CONSULTATION: 08/17/2018 REASON FOR CONSULTATION: A recent fall. HISTORY OF PRESENT ILLNESS: The patient is a 63-year-old male, who has a history of hypertension, diabetes mellitus, multiple sclerosis, psoriasis, has a history of frequent falls, presented because of a fall in the kitchen. The patient stated that as he was standing he fell initially on his 's seat and then slumped over, his forehead touching the stove. The patient denies any syncope. The patient attributed the falls to leg weakness, and the patient is unaware of any history of heart attack in the past and is unaware of any history of coronary intervention. SOCIAL HISTORY: The patient is nonsmoker, nondrinker. He denies using illegal drugs. He is , however, his is living between [place] and [place]. MEDICATIONS: Hydralazine 10 mg intravenously every 6 hours p.r.n., clonidine patch 0.1 mg t.i.d., K-Dur 40 mEq p.o. every 6 hours, Lopressor 25 mg twice a day, Norvasc 10 mg once a day, Lovenox 40 mg subcutaneously once a day, Protonix 40 mg p.o. once a day. REVIEW OF SYSTEMS: The patient denies any chest pain, fever or chills, nausea or vomiting. PHYSICAL EXAMINATION GENERAL: The patient is a middle-aged male, who does not appear to be in acute distress. VITAL SIGNS: Blood pressure 140/84, heart rate 98, temperature 97.7, respirations 20. HEENT: A psoriatic scalp lesion. NECK: No JVD. CHEST: Clear. HEART: Sounds S1 and S2 are regular and distant. ABDOMEN: Soft. EXTREMITIES: 1+ pitting edema. LABORATORY DATA: Troponin was 0.04 and 0.05, both are in the indeterminate range. SMA-7 is within normal limits except for a chloride of 3.3, glucose 292. Hemoglobin, hematocrit, white count, and platelet count on admission are within normal limits. PT/PTT and INR are within normal limits. Urine drug screen is positive for opiates. EKG revealed sinus rhythm at a rate of 97, prolonged QT interval, and moderate voltage criteria for LVH. Head CT scan without contrast, no acute findings. Chest x-ray, no interval acute cardiopulmonary disease appreciated. Echocardiographic study in 12/2015, hyperdynamic left ventricle. Cardiac catheterization in 2013 revealed normal coronary circulation and normal ejection fraction. ASSESSMENT: 1. A recent fall. The patient has a history of recurrent falls. 2. Hypokalemia. 3. Hypertension. 4. Uncontrolled diabetes mellitus. 5. Psoriasis. RECOMMENDATIONS: Continue hydralazine 10 mg intravenously every 6 hours p.r.n., continue clonidine 0.1 mg t.i.d., potassium chloride oral replacement, Lopressor 25 mg twice a day, amlodipine at 10 mg once a day. Obtain repeat SMA-7 as well as magnesium level. Neurology consult is recommended. In the meantime, I will repeat 12-lead EKG today and obtain a serum D-dimer. Rm Cooley MD
[2018-08-17] MEDS ORDERED: Insulin Regular 1 UNITS/0.01 ML ML SC ONE (22:20)
[2018-08-18 07:13] LABS: BASO # 0.04 K/mm3 (0.0-2.0); BASO % 0.5 % (0.0-3.0); EOS # 0.3 (0.0-0.7); EOS % 3.1 % (1.5-5.0); HEMOGLOBIN 13.1 g/dL (14.0-18.0); LYMPH # 2.5 (1.2-3.4); LYMPH % 29.4 % (22.0-35.0); MEAN CELL VOLUME 86.9 fl (80.0-105.0); MEAN CORPUSCULAR HEMOGLOBIN 28.2 pg (25.0-35.0); MEAN CORPUSCULAR HGB CONC 32.5 g/dl (31.0-37.0); MEAN PLATELET VOLUME 10.9 fl (7.0-11.0); MONO # 0.6 (0.1-0.6); MONO % 7.2 % (1.0-6.0); RBC 4.64 10^6/uL (3.5-6.1); RED CELL DISTRIBUTION WIDTH 13.8 % (11.5-14.5); WHITE BLOOD COUNT 8.6 10^3/uL (4.5-11.0)
[2018-08-18 07:17] LABS: ALB/GLOB RATIO 1.2 (1.1-1.8); ALBUMIN 3.8 g/dL (3.0-4.8); CALCIUM 9.2 mg/dL (8.4-10.5)
[2018-08-18] MEDS ORDERED: Gadodiamide 287 MG/ML VIAL (20ML) IV ONE (08:18)
[2018-08-18] MEDS: Enoxaparin 40 mg Syringe SC SCH (09:12)
[2018-08-18] MEDS: Pantoprazole 40 mg EC Tab PO SCH (09:13)
[2018-08-18] MEDS: Insulin Regular 1 UNITS/0.01 ML ML SC SCH ×4 (09:17→22:00)
[2018-08-18] MEDS: Hydrocortisone 1% Cream (30 GM) TOP SCH (09:19)
--- NOTE | 2018-08-18 09:32 | MRI ---
Date of service: 08/18/2018 PROCEDURE: MRI BRAIN WITH AND WITHOUT CONTRAST HISTORY: evaluate for MS exacerbation COMPARISON: 09/30/2015. TECHNIQUE: Multiplanar, multisequence MR images of the brain were obtained with and without intravenous contrast enhancement. 15 cc of Omniscan FINDINGS: HEMORRHAGE: None DWI: There are 3 small acute round 3 mm infarcts on the left side involving the left occipital lobe, the head of the caudate nucleus and the left frontal lobe. BRAIN PARENCHYMA: There is extensive white matter disease in the periventricular white matter extending into the occipital horns left greater than right. This has shown severe progression since the previous study ENHANCEMENT: No abnormal intracranial enhancement. VENTRICLES: Unremarkable. No hydrocephalus. CRANIUM: Unremarkable. ORBITS: Grossly unremarkable. PARANASAL SINUSES/MASTOIDS: Clear VASCULAR SYSTEM: Skull base flow voids intact. OTHER FINDINGS: None . IMPRESSION: There is extensive white matter disease in the periventricular white matter extending into the occipital horns left greater than right. This has shown severe progression since the previous study Several small punctate acute infarcts in the left hemisphere
--- NOTE | 2018-08-18 09:56 | PCM.EEG ---
Electroencephalogram Report - Electroencephalogram Report Procedure Date: 08/17/18 Medication: Amlodipine, Clonidine, Primidone Interpretation: Technical Information: This was a 16 -channel EEG, 1-channel EKG routine EEG performed using an TRANSCORP machine. Electrodes were applied using the 10/20 international placement system. Start; 15;09 End; 16;00 Total 51min. Clinical Information: fall and AMS During resting wakefulness there was a symmetric posterior dominant rhythm at 8.Hz, 30-50 uV, which was reactive to eye opening and closing. Drowsiness (15;29) was associated with fragmentation of the posterior dominant rhythm and with slow roving eye movements. Light sleep (15;12) was recorded and was characterized by central vertex waves, sleep spindles, and bilateral theta slowing. Hyperventilation was not performed. Photic stimulation was performed and there were no changes on the record. Focal abnormality; none ECG was associated with a normal sinus rhythm. Impression: This is a normal awake drowsy and sleep electroencephalogram.
[2018-08-18 10:31] LABS: TROPONIN I 0.02 ng/mL
--- NOTE | 2018-08-18 10:50 | CARD ---
APPROVED REPORT Date of service: 08/18/2018 EKG Measurement Heart [id number] <Conclusion> Normal sinus rhythm Minimal voltage criteria for LVH, may be normal variant Borderline ECG
--- NOTE | 2018-08-18 13:05 | PN ---
DATE: 08/18/2018 SUBJECTIVE: I came to evaluate the patient today. The patient was abusive and for unclear reasons. PHYSICAL EXAMINATION: VITAL SIGNS: Blood pressure 150/85, heart rate 89, temperature 98.6 and respiration 18. LABORATORY DATA: Today's hemoglobin and hematocrit 15.1 and 48.3. White count and platelet count are within normal limits. Today's SMA-7 are within normal limits except for glucose 194. Brain MRI extensive white matter disease and periventricular white matter extending in to the occipital , left greater than right. This has shown severe progression since the previous study. ASSESSMENT: 1. Status post fall. 2. Extensive white matter disease and periventricular white matter that has progressed significantly compared to the previous study. 3. Hypertension. 4. Uncontrolled diabetes mellitus. 5. Psoriasis. 6. History of multiple sclerosis. 7. Nephrolithiasis. 8. Seizure disorder. RECOMMENDATIONS: Continue current hydralazine, aspirin, clonidine, Lipitor and Lopressor as well as Norvasc. I will discuss with primary physician changing to cardiac service, if the patient request so. Rm Cooley MD
[2018-08-18] MEDS ORDERED: Ergocalciferol 50,000 Intl Units Cap PO SCH (13:15)
--- NOTE | 2018-08-18 14:20 | CP.PCM.PN ---
Subjective - Date & Time of Evaluation Date of Evaluation: 08/18/18 Time of Evaluation: 14:17 - Subjective Subjective: Neuro Follow-Up Note: Mr. Colón was evaluated this afternoon at bedside. He states that he still has weakness (more to his legs than arms) and has a headache on and off (none now). He states that he was able to ambulate with PT this morning to the bathroom and tolerated well. He offers no other complaints today; no dizziness, visual changes, chest pain, palpitations, sob, cough, abd pain n/v/d. Objective - Vital Signs/Intake and Output Vital Signs (last 24 hours): Temp Pulse Resp BP Pulse Ox 98.1 F 83 19 168/105 H 98 08/18/18 12:00 08/18/18 12:00 08/18/18 12:00 08/18/18 12:00 08/18/18 05:40 Intake and Output: 08/18/18 08/18/18 06:59 18:59 Intake Total 1140 Output Total 2050 Balance -910 - Medications Medications: Current Medications Amlodipine Besylate (Norvasc) 10 mg PO DAILY [facility] Last Admin: 08/18/18 09:22 Dose: 10 mg Aspirin (Aspirin Chewable) 81 mg PO DAILY [facility] Last Admin: 08/18/18 09:13 Dose: 81 mg Atorvastatin Calcium (Lipitor) 40 mg PO DIN [facility] Clonidine HCl (Catapres) 0.1 mg PO TID [facility] Last Admin: 08/18/18 13:00 Dose: 0.1 mg Cyclobenzaprine HCl (Flexeril) 10 mg PO BID [facility] Last Admin: 08/18/18 09:13 Dose: 10 mg Dextrose (Dextrose 50% Inj) 0 ml IV STAT PRN; Protocol PRN Reason: Hypoglycemia Protocol Enoxaparin Sodium (Lovenox) 40 mg SC DAILY [facility]; Protocol Last Admin: 08/18/18 09:12 Dose: 40 mg Ergocalciferol (Drisdol 50,000 Intl Units Cap) 1 cap PO Q7D [facility] Hydralazine HCl (Apresoline) 10 mg IVP Q6 PRN PRN Reason: Systolic Blood Pressure Hydrocortisone (Cortizone 1% Cream) 0 gm TOP BID [facility] Last Admin: 08/18/18 09:19 Dose: 1 applic Dextrose (Dextrose 5% In Water 1000 Ml) 1,000 mls @ 0 mls/hr IV .Q0M PRN; Protocol PRN Reason: Hypoglycemia Protocol Insulin Human Regular (Humulin R) 0 units SC ACHS [facility]; Protocol Last Admin: 08/18/18 13:00 Dose: 7 units Meclizine HCl (Antivert) 12.5 mg PO ONCE PRN PRN Reason: Dizziness Last Admin: 08/17/18 17:12 Dose: 12.5 mg Metoprolol Tartrate (Lopressor) 25 mg PO BID [facility] Last Admin: 08/18/18 09:13 Dose: 25 mg Pantoprazole Sodium (Protonix Ec Tab) 40 mg PO 0600 [facility] Last Admin: 08/18/18 09:13 Dose: 40 mg Primidone (Mysoline) 50 mg PO DAILY [facility] Last Admin: 08/18/18 09:13 Dose: 50 mg - Labs Labs: 08/18/18 06:20 08/18/18 06:20 PT 11.4 SECONDS (9.4-12.5) 08/16/18 20:40 INR 1.03 08/16/18 20:40 APTT 31.4 Seconds (26.9-38.3) 08/16/18 20:40 - Constitutional Appears: Well, Non-toxic - Head Exam Head Exam: ATRAUMATIC, NORMAL INSPECTION, NORMOCEPHALIC - Eye Exam Eye Exam: EOMI, Normal appearance, PERRL Pupil Exam: NORMAL ACCOMODATION, PERRL - ENT Exam ENT Exam: Mucous Membranes Moist - Neck Exam Neck Exam: Full ROM, Normal Inspection - Respiratory Exam Respiratory Exam: NORMAL BREATHING PATTERN - Extremities Exam Extremities Exam: absent: Calf Tenderness, Full ROM, Pedal Edema Additional comments: Strength to all extremities decreased, increased weakness to BLE Pt unable to hold up BLE for more than 2-3 seconds - Neurological Exam Neurological Exam: Alert, Awake, CN II-XII Intact, Oriented x3, Reflexes Normal. absent: Normal Gait Neuro motor strength exam: Left Upper Extremity: 3 (hereditary cancer program coordinator 2-3/5), Right Upper Extremity: 3 (hereditary cancer program coordinator 2-3/5), Left Lower Extremity: 2/1 (plantar flexion 2/5), Right Lower Extremity: 2/1 (plantar flexion 2/5) Additional comments: Some stuttering of speech; no slurring AAOx3 Follows all commands Strength to all extremities decreased, increased weakness to BLE Pt unable to hold up BLE for more than 2-3 seconds Sensation is diminished to all extremities Vibration diminished Toes down going Gait not assessed - Psychiatric Exam Psychiatric exam: Normal Affect, Normal Mood - Skin Skin Exam: Normal Color Additional comments: multiple psoriasis plaques noted all over body Assessment and Plan (1) Frequent falls Assessment & Plan: -EEG normal. -MRI brain (08/18/18): There is extensive white matter disease in the periventricular white matter extending into the occipital horns left greater t purcell right. This has shown severe progression since the previous study. Several small punctate acute infarcts in the left hemisphere -Continue PT/OT -Recommend rehab upon d/c as pt is deconditioned and has weakness to all of his extremities (more to BLE). Status: Acute (2) Shaking Assessment & Plan: -EEG is normal. -No need to start AE at this time. Status: Acute (3) Multiple sclerosis Assessment & Plan: -Brain MRI (08/18/18): There is extensive white matter disease in the periventricular white matter extending into the occipital horns left greater than right. This has shown severe progression since the previous study. Several small punctate acute infarcts in the left hemisphere -We recommend for the pt to start Solumedrol 1gm IV Antonia x3 days. I spoke to the pt about this at length today and he adamantly refuses. He verbalized that he wants to start rehab at [facility] first and see how he progresses. He admits that he is open to steroid treatment at a later time but not now. If pt has any other questions or concerns about this we can discuss them with him. -Recommend that pt follows up with a MS center (such as at [facility]). He currently sees Dr. Alvarado as outpatient but has never been to, or been referred to, a MS center. Kirsten Beatty, CHAKA, DISPOSAL PLANT OPERATOR Case discussed with Dr. Hernandez Status: Chronic
--- NOTE | 2018-08-18 14:54 | CP.PCM.PN ---
<Paula Harris - Last Filed: 08/18/18 14:50> Subjective - Date & Time of Evaluation Date of Evaluation: 08/18/18 Time of Evaluation: 14:50 - Subjective Subjective: Paula Harris, PGY-1, Internal Medicine Progress Note for Dr. Jimenez Patient seen and evaluated at bedside. Patient reported no acute overnight events. Patient this morning complained of blurry vision, abdominal pain, back pain, and constipation, which were all unchanged from yesterday. Patient also reported pressure like chest pain with no associated left arm, jaw pain, shortness of breath, nausea, or diaphoresis. 12-point ROS was unremarkable except for what was mentioned above. Objective - Vital Signs/Intake and Output Vital Signs (last 24 hours): Temp Pulse Resp BP Pulse Ox 98.1 F 83 19 168/105 H 98 08/18/18 12:00 08/18/18 12:00 08/18/18 12:00 08/18/18 12:00 08/18/18 05:40 Intake and Output: 08/18/18 08/18/18 06:59 18:59 Intake Total 1140 Output Total 2050 Balance -910 - Medications Medications: Current Medications Amlodipine Besylate (Norvasc) 10 mg PO DAILY [facility] Last Admin: 08/18/18 09:22 Dose: 10 mg Aspirin (Aspirin Chewable) 81 mg PO DAILY [facility] Last Admin: 08/18/18 09:13 Dose: 81 mg Atorvastatin Calcium (Lipitor) 40 mg PO DIN [facility] Clonidine HCl (Catapres) 0.1 mg PO TID [facility] Last Admin: 08/18/18 13:00 Dose: 0.1 mg Cyclobenzaprine HCl (Flexeril) 10 mg PO BID [facility] Last Admin: 08/18/18 09:13 Dose: 10 mg Dextrose (Dextrose 50% Inj) 0 ml IV STAT PRN; Protocol PRN Reason: Hypoglycemia Protocol Enoxaparin Sodium (Lovenox) 40 mg SC DAILY [facility]; Protocol Last Admin: 08/18/18 09:12 Dose: 40 mg Ergocalciferol (Drisdol 50,000 Intl Units Cap) 1 cap PO Q7D [facility] Hydralazine HCl (Apresoline) 10 mg IVP Q6 PRN PRN Reason: Systolic Blood Pressure Hydrocortisone (Cortizone 1% Cream) 0 gm TOP BID [facility] Last Admin: 08/18/18 09:19 Dose: 1 applic Dextrose (Dextrose 5% In Water 1000 Ml) 1,000 mls @ 0 mls/hr IV .Q0M PRN; Protocol PRN Reason: Hypoglycemia Protocol Insulin Human Regular (Humulin R) 0 units SC ACHS [facility]; Protocol Last Admin: 08/18/18 13:00 Dose: 7 units Meclizine HCl (Antivert) 12.5 mg PO ONCE PRN PRN Reason: Dizziness Last Admin: 08/17/18 17:12 Dose: 12.5 mg Metoprolol Tartrate (Lopressor) 25 mg PO BID [facility] Last Admin: 08/18/18 09:13 Dose: 25 mg Pantoprazole Sodium (Protonix Ec Tab) 40 mg PO 0600 [facility] Last Admin: 08/18/18 09:13 Dose: 40 mg Primidone (Mysoline) 50 mg PO DAILY [facility] Last Admin: 08/18/18 09:13 Dose: 50 mg - Labs Labs: 08/18/18 06:20 08/18/18 06:20 PT 11.4 SECONDS (9.4-12.5) 08/16/18 20:40 INR 1.03 08/16/18 20:40 APTT 31.4 Seconds (26.9-38.3) 08/16/18 20:40 - Constitutional Appears: Well, Non-toxic, No Acute Distress - Head Exam Head Exam: ATRAUMATIC, NORMAL INSPECTION, NORMOCEPHALIC - Eye Exam Eye Exam: EOMI, PERRL Additional comments: Peripheral vision was markedly reduced - ENT Exam ENT Exam: Mucous Membranes Dry - Respiratory Exam Respiratory Exam: Clear to Ausculation Bilateral, NORMAL BREATHING PATTERN - Cardiovascular Exam Cardiovascular Exam: REGULAR RHYTHM, RRR - GI/Abdominal Exam GI & Abdominal Exam: Soft, Tenderness, Normal Bowel Sounds - Extremities Exam Extremities Exam: Normal Inspection. absent: Full ROM - Back Exam Back Exam: tenderness - Neurological Exam Neurological Exam: Alert, Awake, CN II-XII Intact, Oriented x3 Additional comments: confused at times. Bilateral lower extremity strength +3/5, worsened from yesterday. Upper extremity strength is intact. Intention tremor is worse but generally essential tremor has improved. Peripheral vision has markedly reduced. - Skin Skin Exam: Dry, Intact, Normal Color Assessment and Plan - Assessment and Plan (Free Text) Assessment: 53 year old male with past medical history of diabetes mellitus type II, hypertension, multiple sclerosis, psoriasis, kidney stones, colon polyps, and PTSD presented to the emergency department for frequent falls and worsening of tremors likely 2/2 to multiple sclerosis exacerbation vs. stroke. Plan: Frequent falls and shaking 2/2 to MS exacerbation vs. seizures vs. stroke vs. essential tremors vs. vertigo -Brain MRI 08/18: extensive white matter disease in the periventricular white matter extending into the occipital horns left greater than right (progression since last MRI). 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 -EEG 08/18: unremarkable -Patient is refusing solumedrol 1 gm IV daily for 3 days. He is open for solumedrol at later time but not at this time. -He wants to start rehab at [facility] and see how he progresses. -Continue with primidone for essential tremor -Continue with home meclizine for vertigo -Started aspirin and lipitor for suspected new stroke. Patient is likely out of range for tPA. -As per neuro, patient should follow up outpatient at an MS center and should have rehab upon discharge. -Continue PT, OT Hypertension -Continue with [facility] clonidine, lopressor, norvasc, and PRN hydralazine Uncontrolled Diabetes Mellitus -Continue with SSI Hypovitamin D -Continue with ergocalciferol Chronic back pain -Continue with flexeril BID Psoriasis -Started methotrexate 2.5 mg Q12 for 3 doses -Continue home hydrocortisone cream GI prophylaxis: protonix 40 mg daily DVT prophylaxis: lovenox 40 mg daily Patient plan discussed with attending. <Justine Jimenez - Last Filed: 08/18/18 15:41> Objective - Vital Signs/Intake and Output Vital Signs (last 24 hours): Temp Pulse Resp BP Pulse Ox 98.1 F 94 H 19 168/105 H 98 08/18/18 12:00 08/18/18 14:00 08/18/18 12:00 08/18/18 12:00 08/18/18 05:40 Intake and Output: 08/18/18 08/18/18 06:59 18:59 Intake Total 1140 Output Total 2050 Balance -910 - Medications Medications: Current Medications Amlodipine Besylate (Norvasc) 10 mg PO DAILY [facility] Last Admin: 08/18/18 09:22 Dose: 10 mg Aspirin (Aspirin Chewable) 81 mg PO DAILY [facility] Last Admin: 08/18/18 09:13 Dose: 81 mg Atorvastatin Calcium (Lipitor) 40 mg PO DIN [facility] Betamethasone Dipropion Augmented (Diprolene Af) 0 gm TOP BID [facility] Clonidine HCl (Catapres) 0.1 mg PO TID [facility] Last Admin: 08/18/18 13:00 Dose: 0.1 mg Cyclobenzaprine HCl (Flexeril) 10 mg PO BID [facility] Last Admin: 08/18/18 09:13 Dose: 10 mg Dextrose (Dextrose 50% Inj) 0 ml IV STAT PRN; Protocol PRN Reason: Hypoglycemia Protocol Enoxaparin Sodium (Lovenox) 40 mg SC DAILY [facility]; Protocol Last Admin: 08/18/18 09:12 Dose: 40 mg Ergocalciferol (Drisdol 50,000 Intl Units Cap) 1 cap PO Q7D [facility] Hydralazine HCl (Apresoline) 10 mg IVP Q6 PRN PRN Reason: Systolic Blood Pressure Dextrose (Dextrose 5% In Water 1000 Ml) 1,000 mls @ 0 mls/hr IV .Q0M PRN; Protocol PRN Reason: Hypoglycemia Protocol Methylprednisolone 1 gm/ (Sodium Chloride) 250 mls @ 500 mls/hr IV DAILY [facility] Stop: 08/20/18 10:29 Insulin Human Regular (Humulin R) 0 units SC ACHS [facility]; Protocol Last Admin: 08/18/18 13:00 Dose: 7 units Meclizine HCl (Antivert) 12.5 mg PO ONCE PRN PRN Reason: Dizziness Last Admin: 08/17/18 17:12 Dose: 12.5 mg Methotrexate (Methotrexate) 2.5 mg PO Q12H [facility] Stop: 08/19/18 15:16 Metoprolol Tartrate (Lopressor) 25 mg PO BID [facility] Last Admin: 08/18/18 09:13 Dose: 25 mg Pantoprazole Sodium (Protonix Ec Tab) 40 mg PO 0600 [facility] Last Admin: 08/18/18 09:13 Dose: 40 mg Primidone (Mysoline) 50 mg PO DAILY [facility] Last Admin: 08/18/18 09:13 Dose: 50 mg - Labs Labs: 08/18/18 06:20 08/18/18 06:20 PT 11.4 SECONDS (9.4-12.5) 08/16/18 20:40 INR 1.03 08/16/18 20:40 APTT 31.4 Seconds (26.9-38.3) 08/16/18 20:40 Attending/Attestation - Attestation I have personally seen and examined this patient.: Yes I have fully participated in the care of the patient.: Yes I have reviewed all pertinent clinical information, including history, physical exam and plan: Yes Notes (Text): 08/18/18 15:34 53 year old male with past medical history of diabetes, hypertension, and MS who presented with complaint of frequent falls and worsening tremors. EEG was negative. MRI brain showed extensive white matter disease in the periventricular white matter extending into the occipital horns, left greater than right, progressed since last MRI; and several small punctuate acute infarcts in the left hemisphere. MRI findings were discussed with the patient. Patient is started on aspirin and statin. PT is following; recommended rehab. Consider IV steroids per neurology, if patient is agreeable. Justine Jimenez MD Hospitalist.
[2018-08-18] MEDS: methylPREDNISolone 1 GM in Sodium Chloride 0.9% 250 ML IV SCH (17:46)
[2018-08-18] MEDS: Betamethasone Dip 0.05% Cream(15 gm) TOP SCH (17:48)
[2018-08-19] MEDS: Pantoprazole 40 mg EC Tab PO SCH (07:06)
--- NOTE | 2018-08-19 07:34 | CP.PCM.PN ---
<Anam Mcrae - Last Filed: 08/19/18 15:04> Subjective - Date & Time of Evaluation Date of Evaluation: 08/19/18 Time of Evaluation: 07:34 - Subjective Subjective: PGY-1 Medicine Progress Note for Dr. Jimenez Patient seen and evaluated at bedside. Patient reported no acute overnight events. He is complaining of hand tremors that he has been having for the past week. He is also complaining of weakness of his lower extremities. Otherwise denies chest pain, shortness of breath, abdominal pain, nausea, vomiting, diarrhea, or any other complaints. Objective - Vital Signs/Intake and Output Vital Signs (last 24 hours): Temp Pulse Resp BP Pulse Ox 98.7 F 87 20 161/105 H 96 08/19/18 05:52 08/19/18 05:52 08/19/18 05:52 08/19/18 05:52 08/19/18 05:52 Intake and Output: 08/19/18 08/19/18 06:59 18:59 Intake Total 300 Output Total 450 Balance -150 - Medications Medications: Current Medications Amlodipine Besylate (Norvasc) 10 mg PO DAILY [facility] Last Admin: 08/18/18 09:22 Dose: 10 mg Aspirin (Aspirin Chewable) 81 mg PO DAILY [facility] Last Admin: 08/18/18 09:13 Dose: 81 mg Atorvastatin Calcium (Lipitor) 40 mg PO DIN [facility] Last Admin: 08/18/18 17:46 Dose: 40 mg Betamethasone Dipropion Augmented (Diprolene Af) 0 gm TOP BID [facility] Last Admin: 08/18/18 17:48 Dose: 1 applic Clonazepam (Klonopin) 0.5 mg PO HS PRN; Protocol PRN Reason: Insomnia Clonidine HCl (Catapres) 0.1 mg PO TID [facility] Last Admin: 08/18/18 17:47 Dose: 0.1 mg Cyclobenzaprine HCl (Flexeril) 10 mg PO BID [facility] Last Admin: 08/18/18 17:47 Dose: 10 mg Dextrose (Dextrose 50% Inj) 0 ml IV STAT PRN; Protocol PRN Reason: Hypoglycemia Protocol Enoxaparin Sodium (Lovenox) 40 mg SC DAILY [facility]; Protocol Last Admin: 08/18/18 09:12 Dose: 40 mg Ergocalciferol (Drisdol 50,000 Intl Units Cap) 1 cap PO Q7D [facility] Last Admin: 08/18/18 16:19 Dose: 1 cap Hydralazine HCl (Apresoline) 10 mg IVP Q6 PRN PRN Reason: Systolic Blood Pressure Dextrose (Dextrose 5% In Water 1000 Ml) 1,000 mls @ 0 mls/hr IV .Q0M PRN; Protocol PRN Reason: Hypoglycemia Protocol Methylprednisolone 1 gm/ (Sodium Chloride) 250 mls @ 500 mls/hr IV DAILY [facility] Stop: 08/20/18 10:29 Last Admin: 08/18/18 17:46 Dose: 500 mls/hr Insulin Human Regular (Humulin R) 0 units SC ACHS [facility]; Protocol Last Admin: 08/18/18 22:00 Dose: Not Given Meclizine HCl (Antivert) 12.5 mg PO ONCE PRN PRN Reason: Dizziness Last Admin: 08/17/18 17:12 Dose: 12.5 mg Methotrexate (Methotrexate) 2.5 mg PO Q12H [facility] Stop: 08/19/18 15:16 Last Admin: 08/19/18 07:06 Dose: 2.5 mg Metoprolol Tartrate (Lopressor) 25 mg PO BID [facility] Last Admin: 08/18/18 17:47 Dose: 25 mg Pantoprazole Sodium (Protonix Ec Tab) 40 mg PO 0600 [facility] Last Admin: 08/19/18 07:06 Dose: 40 mg Primidone (Mysoline) 50 mg PO DAILY [facility] Last Admin: 08/18/18 09:13 Dose: 50 mg - Labs Labs: 08/18/18 06:20 08/18/18 06:20 PT 11.4 SECONDS (9.4-12.5) 08/16/18 20:40 INR 1.03 08/16/18 20:40 APTT 31.4 Seconds (26.9-38.3) 08/16/18 20:40 - Additional Findings Additional findings: - Constitutional Appears: Well, Non-toxic, No Acute Distress - Head Exam Head Exam: ATRAUMATIC, NORMAL INSPECTION, NORMOCEPHALIC - Eye Exam Eye Exam: EOMI, PERRL Additional comments: Peripheral vision was markedly reduced - ENT Exam ENT Exam: Mucous Membranes Dry - Respiratory Exam Respiratory Exam: Clear to Ausculation Bilateral, NORMAL BREATHING PATTERN - Cardiovascular Exam Cardiovascular Exam: REGULAR RHYTHM, RRR - GI/Abdominal Exam GI & Abdominal Exam: Soft, Tenderness, Normal Bowel Sounds - Extremities Exam Extremities Exam: Normal Inspection. absent: Full ROM - Back Exam Back Exam: tenderness - Neurological Exam Neurological Exam: Alert, Awake, CN II-XII Intact, Oriented x3 Additional comments: Bilateral lower extremity strength +3/5. Upper extremity strength is 5/5. Intention tremor present on bilateral hands. Assessment and Plan - Assessment and Plan (Free Text) Assessment: 53 year old male with past medical history of diabetes mellitus type II, hypertension, multiple sclerosis, psoriasis, kidney stones, colon polyps, and PTSD admitted for multiple sclerosis exacerbation. Patient is awaiting acceptance to [facility]. Plan: Multiple sclerosis exacerbation - Brain MRI 08/18: extensive white matter disease in the periventricular white matter extending into the occipital horns left greater than right (progression since last MRI). 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 - EEG 08/18: unremarkable - Continue Solumedrol 1 gm IV daily for 3 days, last dose is 08/20 - Continue with primidone for essential tremor - Continue with home meclizine for vertigo - Continue ASA and Lipitor - As per neuro, patient should follow up outpatient at an MS center and should have rehab upon discharge. - Continue PT, OT Hypertension - Continue with [facility] clonidine, lopressor, norvasc, and PRN hydralazine - Continue to monitor Uncontrolled Diabetes Mellitus - ISS, high - Humalog 4 units AC - Levemir 10 units HS - Accuchecks ACHS Leukocytosis - WBC: 13.5 - Likely secondary to steroids Hypovitamin D - Continue with ergocalciferol Psoriasis - Methotrexate 2.5 mg Q12- 3 doses given - Continue home hydrocortisone cream GI prophylaxis: protonix 40 mg daily DVT prophylaxis: lovenox 40 mg daily Disposition: Awaiting acceptance to [facility]. Patient plan discussed with attending, Dr. Barbara Mcrae, PGY-1 <Justine Jimenez - Last Filed: 08/19/18 17:03> Objective - Vital Signs/Intake and Output Vital Signs (last 24 hours): Temp Pulse Resp BP Pulse Ox 97.9 F 99 H 20 192/93 H 96 08/19/18 12:00 08/19/18 12:00 08/19/18 12:00 08/19/18 14:52 08/19/18 05:52 Intake and Output: 08/19/18 08/19/18 06:59 18:59 Intake Total 300 300 Output Total 450 900 Balance -150 -600 - Medications Medications: Current Medications Amlodipine Besylate (Norvasc) 10 mg PO DAILY [facility] Last Admin: 08/19/18 09:08 Dose: 10 mg Aspirin (Aspirin Chewable) 81 mg PO DAILY [facility] Last Admin: 08/19/18 09:07 Dose: 81 mg Atorvastatin Calcium (Lipitor) 40 mg PO DIN [facility] Last Admin: 08/18/18 17:46 Dose: 40 mg Betamethasone Dipropion Augmented (Diprolene Af) 0 gm TOP BID [facility] Last Admin: 08/19/18 09:08 Dose: 1 applic Clonazepam (Klonopin) 0.5 mg PO HS PRN; Protocol PRN Reason: Insomnia Last Admin: 08/19/18 09:07 Dose: 0.5 mg Clonidine HCl (Catapres) 0.1 mg PO TID [facility] Last Admin: 08/19/18 14:53 Dose: 0.1 mg Cyclobenzaprine HCl (Flexeril) 10 mg PO BID [facility] Last Admin: 08/18/18 17:47 Dose: 10 mg Dextrose (Dextrose 50% Inj) 0 ml IV STAT PRN; Protocol PRN Reason: Hypoglycemia Protocol Enoxaparin Sodium (Lovenox) 40 mg SC DAILY [facility]; Protocol Last Admin: 08/19/18 09:07 Dose: 40 mg Ergocalciferol (Drisdol 50,000 Intl Units Cap) 1 cap PO Q7D [facility] Last Admin: 08/18/18 16:19 Dose: 1 cap Hydralazine HCl (Apresoline) 10 mg IVP Q6 PRN PRN Reason: Systolic Blood Pressure Last Admin: 08/19/18 14:52 Dose: 10 mg Dextrose (Dextrose 5% In Water 1000 Ml) 1,000 mls @ 0 mls/hr IV .Q0M PRN; Protocol PRN Reason: Hypoglycemia Protocol Methylprednisolone 1 gm/ (Sodium Chloride) 250 mls @ 500 mls/hr IV DAILY [facility] Stop: 08/20/18 10:29 Last Admin: 08/19/18 09:10 Dose: 500 mls/hr Insulin Detemir (Levemir) 10 unit SC HS [facility] Insulin Human Lispro (Humalog) 4 units SC AC [facility] Insulin Human Regular (Humulin R) 0 units SC ACHS [facility]; Protocol Last Admin: 08/19/18 12:16 Dose: 10 units Lisinopril (Zestril) 10 mg PO DAILY [facility] Meclizine HCl (Antivert) 12.5 mg PO ONCE PRN PRN Reason: Dizziness Last Admin: 08/17/18 17:12 Dose: 12.5 mg Metoprolol Tartrate (Lopressor) 25 mg PO BID [facility] Last Admin: 08/19/18 09:08 Dose: 25 mg Pantoprazole Sodium (Protonix Ec Tab) 40 mg PO 0600 [facility] Last Admin: 08/19/18 07:06 Dose: 40 mg Primidone (Mysoline) 50 mg PO DAILY [facility] Last Admin: 08/19/18 09:08 Dose: 50 mg - Labs Labs: 08/19/18 08:30 08/19/18 08:30 PT 11.4 SECONDS (9.4-12.5) 08/16/18 20:40 INR 1.03 08/16/18 20:40 APTT 31.4 Seconds (26.9-38.3) 08/16/18 20:40 Attending/Attestation - Attestation I have personally seen and examined this patient.: Yes I have fully participated in the care of the patient.: Yes I have reviewed all pertinent clinical information, including history, physical exam and plan: Yes Notes (Text): 08/19/18 17:02 53 year old male with past medical history of diabetes, hypertension, and MS who presented with complaint of frequent falls and worsening tremors. EEG was negative. MRI brain showed extensive white matter disease in the periventricular white matter extending into the occipital horns, left greater than right, progressed since last MRI; and several small punctuate acute infarcts in the left hemisphere. Patient is started on aspirin and statin. He is also started on iv steroids; day 2/3. PT is following; recommended rehab which [facility]x/Sw is working on. Lisinopril is added today for uncontrolled hypertension and levemir for diabetes. Justine Jimenez MD Hospitalist.
[2018-08-19 09:02] LABS: BASO # 0.01 K/mm3 (0.0-2.0); BASO % 0.1 % (0.0-3.0); HEMOGLOBIN 14.8 g/dL (14.0-18.0); LYMPH # 1.1 (1.2-3.4); LYMPH % 7.8 % (22.0-35.0); MEAN CELL VOLUME 84.5 fl (80.0-105.0); MEAN CORPUSCULAR HEMOGLOBIN 29.4 pg (25.0-35.0); MEAN CORPUSCULAR HGB CONC 34.7 g/dl (31.0-37.0); MEAN PLATELET VOLUME 10.9 fl (7.0-11.0); MONO # 0.1 (0.1-0.6); MONO % 0.9 % (1.0-6.0); PLATELET COUNT 223 10^3/uL (120.0-450.0); RBC 5.04 10^6/uL (3.5-6.1); RED CELL DISTRIBUTION WIDTH 13.2 % (11.5-14.5)
[2018-08-19] MEDS: Enoxaparin 40 mg Syringe SC SCH (09:07)
[2018-08-19] MEDS: Betamethasone Dip 0.05% Cream(15 gm) TOP SCH (09:08)
[2018-08-19] MEDS: Insulin Regular 1 UNITS/0.01 ML ML SC SCH ×4 (09:09→22:35)
[2018-08-19] MEDS: methylPREDNISolone 1 GM in Sodium Chloride 0.9% 250 ML IV SCH (09:10)
[2018-08-19 09:25] LABS: ALB/GLOB RATIO 1.2 (1.1-1.8); ALBUMIN 4.4 g/dL (3.0-4.8); ALT/SGPT 27 U/L (7-56); AST/SGOT 34 U/L (17-59); BLOOD UREA NITROGEN 29 mg/dL (7-21); CALCIUM 9.8 mg/dL (8.4-10.5); GFR NON-AFRICAN AMERICAN 58
[2018-08-19 09:28] LABS: WHITE BLOOD COUNT 13.5 10^3/uL (4.5-11.0)
[2018-08-19 10:02] LABS: LYMPHOCYTE 3 % (22.0-35.0); MONOCYTE 2 % (1.0-6.0); NEUTROPHIL 95 % (50.0-70.0)
[2018-08-19 10:03] LABS: PLATELET ESTIMATE NORMAL (NORMAL)
[2018-08-19] MEDS ORDERED: Insulin Regular 1 UNITS/0.01 ML ML SC SCH (11:30)
--- NOTE | 2018-08-19 14:23 | CP.PCM.PCO ---
Physician Communication Note - Physician Communication Note Physician Communication Note: Awaiting OT eval, PT recommended acute rehab.
--- NOTE | 2018-08-19 14:29 | CP.PCM.APN ---
Objective - Vital Signs/Intake and Output Vital Signs (last 24 hours): Temp Pulse Resp BP Pulse Ox 97.9 F 99 H 20 192/123 H 96 08/19/18 12:00 08/19/18 12:00 08/19/18 12:00 08/19/18 12:00 08/19/18 05:52 Intake and Output: 08/19/18 08/19/18 06:59 18:59 Intake Total 300 300 Output Total 450 900 Balance -150 -600 - Medications Medications: Current Medications Amlodipine Besylate (Norvasc) 10 mg PO DAILY [facility] Last Admin: 08/19/18 09:08 Dose: 10 mg Aspirin (Aspirin Chewable) 81 mg PO DAILY [facility] Last Admin: 08/19/18 09:07 Dose: 81 mg Atorvastatin Calcium (Lipitor) 40 mg PO DIN [facility] Last Admin: 08/18/18 17:46 Dose: 40 mg Betamethasone Dipropion Augmented (Diprolene Af) 0 gm TOP BID [facility] Last Admin: 08/19/18 09:08 Dose: 1 applic Clonazepam (Klonopin) 0.5 mg PO HS PRN; Protocol PRN Reason: Insomnia Last Admin: 08/19/18 09:07 Dose: 0.5 mg Clonidine HCl (Catapres) 0.1 mg PO TID [facility] Last Admin: 08/19/18 09:07 Dose: 0.1 mg Cyclobenzaprine HCl (Flexeril) 10 mg PO BID [facility] Last Admin: 08/18/18 17:47 Dose: 10 mg Dextrose (Dextrose 50% Inj) 0 ml IV STAT PRN; Protocol PRN Reason: Hypoglycemia Protocol Enoxaparin Sodium (Lovenox) 40 mg SC DAILY [facility]; Protocol Last Admin: 08/19/18 09:07 Dose: 40 mg Ergocalciferol (Drisdol 50,000 Intl Units Cap) 1 cap PO Q7D [facility] Last Admin: 08/18/18 16:19 Dose: 1 cap Hydralazine HCl (Apresoline) 10 mg IVP Q6 PRN PRN Reason: Systolic Blood Pressure Dextrose (Dextrose 5% In Water 1000 Ml) 1,000 mls @ 0 mls/hr IV .Q0M PRN; Protocol PRN Reason: Hypoglycemia Protocol Methylprednisolone 1 gm/ (Sodium Chloride) 250 mls @ 500 mls/hr IV DAILY [facility] Stop: 08/20/18 10:29 Last Admin: 08/19/18 09:10 Dose: 500 mls/hr Insulin Human Regular (Humulin R) 0 units SC ACHS [facility]; Protocol Last Admin: 08/19/18 12:16 Dose: 10 units Insulin Human Regular (Humulin R) 4 units SC AC [facility] Last Admin: 08/19/18 12:15 Dose: 4 unit Meclizine HCl (Antivert) 12.5 mg PO ONCE PRN PRN Reason: Dizziness Last Admin: 08/17/18 17:12 Dose: 12.5 mg Methotrexate (Methotrexate) 2.5 mg PO Q12H [facility] Stop: 08/19/18 15:16 Last Admin: 08/19/18 07:06 Dose: 2.5 mg Metoprolol Tartrate (Lopressor) 25 mg PO BID [facility] Last Admin: 08/19/18 09:08 Dose: 25 mg Pantoprazole Sodium (Protonix Ec Tab) 40 mg PO 0600 [facility] Last Admin: 08/19/18 07:06 Dose: 40 mg Primidone (Mysoline) 50 mg PO DAILY [facility] Last Admin: 08/19/18 09:08 Dose: 50 mg - Labs Labs: 08/19/18 08:30 08/19/18 08:30 PT 11.4 SECONDS (9.4-12.5) 08/16/18 20:40 INR 1.03 08/16/18 20:40 APTT 31.4 Seconds (26.9-38.3) 08/16/18 20:40 - Constitutional Appears: Well, Non-toxic - Head Exam Head Exam: NORMOCEPHALIC - ENT Exam ENT Exam: Normal Exam - Neck Exam Neck Exam: Full ROM - Respiratory Exam Respiratory Exam: NORMAL BREATHING PATTERN - Cardiovascular Exam Cardiovascular Exam: +S1, +S2 - GI/Abdominal Exam GI & Abdominal Exam: Soft - Rectal Exam Rectal Exam: Deferred - Extremities Exam Extremities Exam: Normal Inspection - Neurological Exam Neurological Exam: Alert, Awake - Skin Additional comments: scaly lesions noted to arms and legs, with psoriasis appearance. Assessment and Plan - Assessment and Plan (Free Text) Assessment: ITS Impressions Head CT 08/16/18 21:03 IMPRESSION: No acute intracranial findings Chest X-Ray 08/16/18 21:05 IMPRESSION: No interval acute cardiopulmonary disease appreciated. Brain MRI 08/18/18 08:00 IMPRESSION: There is extensive white matter disease in the periventricular white matter extending into the occipital horns left greater than right. This has shown severe progression since the previous study Several small punctate acute infarcts in the left hemisphere Assessment: 53-year-old man with a past medical history of DM, hypertension, multiple sclerosis, and psoriasis, kidney stones, colon polyps, and PTSD, who presented to the ED yesterday complaining of lower extremity weakness and falling, while standing and cooking, fell 2 x, admitted for further eval and treatment, with neuro consulted. Plan: 1. S/p multiple falls.,likely, r/t acute infarcts left occipital hemisphere. PT recommended acute, ot eval pending. neuro thinks likely r/t MS 2. Small acute infarcts on Aspirin, Lipitor 3. MS Exacerbation Iv Methylprednisolone 3 bags as per Neuro PT recommends acute rehab, currently awaiting OT eval. Will continue to d/w consultants, . OPHELIA/BARRERA planning for acute rehab.
[2018-08-19] MEDS: Insulin Lispro 1 UNITS/0.01 ML SC SCH (17:24)
[2018-08-19] MEDS ORDERED: Insulin Detemir 100 units/ml Vial (Levemir) SC SCH (22:00)
[2018-08-20] MEDS: Pantoprazole 40 mg EC Tab PO SCH (05:52)
[2018-08-20 07:34] LABS: HEMOGLOBIN 13.7 g/dL (14.0-18.0); LYMPH % 6.4 % (22.0-35.0); MEAN CELL VOLUME 84.9 fl (80.0-105.0); MEAN CORPUSCULAR HEMOGLOBIN 28.7 pg (25.0-35.0); MEAN CORPUSCULAR HGB CONC 33.8 g/dl (31.0-37.0); MEAN PLATELET VOLUME 11.2 fl (7.0-11.0); MONO # 0.6 (0.1-0.6); MONO % 3.4 % (1.0-6.0); RBC 4.77 10^6/uL (3.5-6.1); RED CELL DISTRIBUTION WIDTH 13.2 % (11.5-14.5); WHITE BLOOD COUNT 16.1 10^3/uL (4.5-11.0)
[2018-08-20 07:49] LABS: ALB/GLOB RATIO 1.1 (1.1-1.8); ALBUMIN 3.9 g/dL (3.0-4.8); CALCIUM 9.3 mg/dL (8.4-10.5)
[2018-08-20] MEDS: Insulin Regular 1 UNITS/0.01 ML ML SC SCH ×4 (08:25→22:32)
[2018-08-20] MEDS: Insulin Lispro 1 UNITS/0.01 ML SC SCH ×3 (08:25→17:45)
[2018-08-20] MEDS: methylPREDNISolone 1 GM in Sodium Chloride 0.9% 250 ML IV SCH (10:42)
[2018-08-20] MEDS: Enoxaparin 40 mg Syringe SC SCH (10:43)
[2018-08-20] MEDS: Betamethasone Dip 0.05% Cream(15 gm) TOP SCH ×2 (10:44→17:46)
[2018-08-20] MEDS ORDERED: Insulin Regular 1 UNITS/0.01 ML ML SC STA ×3 (11:24→23:48)
[2018-08-20] MEDS ORDERED: Insulin Detemir 100 units/ml Vial (Levemir) SC ONE (11:48)
--- NOTE | 2018-08-20 13:48 | CP.PCM.PN ---
<Paula Harris - Last Filed: 08/20/18 13:45> Subjective - Date & Time of Evaluation Date of Evaluation: 08/20/18 Time of Evaluation: 13:45 - Subjective Subjective: Paula Harris, PGY-1, Internal Medicine Progress Note for Dr. Jimenez Patient was seen and evaluated at bedside. Patient had no acute overnight events. Patient refused levemir last night because he wanted to sleep. Patient was educated regarding the importance of taking medications. Today, patient noted increase in bilateral lower extremity strength and decrease in tremors though the tremors are still presents. Patient continues to reports baseline decrease in vision,abdominal pain, and back pain. 12-point ROS was unremarkable except for what was mentioned above. Objective - Vital Signs/Intake and Output Vital Signs (last 24 hours): Temp Pulse Resp BP Pulse Ox 97.4 F L 118 H 18 184/104 H 98 08/20/18 06:00 08/20/18 10:43 08/20/18 06:00 08/20/18 10:43 08/20/18 06:00 Intake and Output: 08/20/18 08/20/18 06:59 18:59 Intake Total 540 Output Total 700 Balance -160 - Medications Medications: Current Medications Amlodipine Besylate (Norvasc) 10 mg PO DAILY [facility] Last Admin: 08/20/18 10:43 Dose: 10 mg Aspirin (Aspirin Chewable) 81 mg PO DAILY [facility] Last Admin: 08/20/18 10:43 Dose: 81 mg Atorvastatin Calcium (Lipitor) 40 mg PO DIN [facility] Last Admin: 08/19/18 17:23 Dose: 40 mg Betamethasone Dipropion Augmented (Diprolene Af) 0 gm TOP BID [facility] Last Admin: 08/20/18 10:44 Dose: 1 applic Clonazepam (Klonopin) 0.5 mg PO HS PRN; Protocol PRN Reason: Insomnia Last Admin: 08/19/18 09:07 Dose: 0.5 mg Clonidine HCl (Catapres) 0.1 mg PO TID [facility] Last Admin: 08/20/18 10:42 Dose: 0.1 mg Cyclobenzaprine HCl (Flexeril) 10 mg PO BID [facility] Last Admin: 08/18/18 17:47 Dose: 10 mg Dextrose (Dextrose 50% Inj) 0 ml IV STAT PRN; Protocol PRN Reason: Hypoglycemia Protocol Enoxaparin Sodium (Lovenox) 40 mg SC DAILY [facility]; Protocol Last Admin: 08/20/18 10:43 Dose: 40 mg Ergocalciferol (Drisdol 50,000 Intl Units Cap) 1 cap PO Q7D [facility] Last Admin: 08/18/18 16:19 Dose: 1 cap Hydralazine HCl (Apresoline) 10 mg IVP Q6 PRN PRN Reason: Systolic Blood Pressure Last Admin: 08/19/18 14:52 Dose: 10 mg Dextrose (Dextrose 5% In Water 1000 Ml) 1,000 mls @ 0 mls/hr IV .Q0M PRN; Protocol PRN Reason: Hypoglycemia Protocol Insulin Detemir (Levemir) 10 unit SC DAILY [facility] Insulin Human Lispro (Humalog) 4 units SC AC [facility] Last Admin: 08/20/18 12:20 Dose: 4 unit Insulin Human Regular (Humulin R) 0 units SC ACHS [facility]; Protocol Last Admin: 08/20/18 12:20 Dose: 15 units Lisinopril (Zestril) 10 mg PO DAILY [facility] Last Admin: 08/20/18 10:43 Dose: 10 mg Meclizine HCl (Antivert) 12.5 mg PO ONCE PRN PRN Reason: Dizziness Last Admin: 08/17/18 17:12 Dose: 12.5 mg Metoprolol Tartrate (Lopressor) 50 mg PO BID [facility] Pantoprazole Sodium (Protonix Ec Tab) 40 mg PO 0600 [facility] Last Admin: 08/20/18 05:52 Dose: 40 mg Primidone (Mysoline) 50 mg PO DAILY [facility] Last Admin: 08/20/18 10:42 Dose: 50 mg - Labs Labs: 08/20/18 07:00 08/20/18 07:00 PT 11.4 SECONDS (9.4-12.5) 08/16/18 20:40 INR 1.03 08/16/18 20:40 APTT 31.4 Seconds (26.9-38.3) 08/16/18 20:40 - Constitutional Appears: Well, Non-toxic, No Acute Distress - Head Exam Head Exam: ATRAUMATIC, NORMAL INSPECTION, NORMOCEPHALIC - Eye Exam Eye Exam: EOMI, PERRL Additional comments: Peripheral vision has improved - ENT Exam ENT Exam: Mucous Membranes Dry - Respiratory Exam Respiratory Exam: Clear to Ausculation Bilateral, NORMAL BREATHING PATTERN - Cardiovascular Exam Cardiovascular Exam: REGULAR RHYTHM, RRR - GI/Abdominal Exam GI & Abdominal Exam: Soft, Tenderness, Normal Bowel Sounds - Extremities Exam Extremities Exam: Normal Inspection. absent: Full ROM - Back Exam Back Exam: tenderness - Neurological Exam Neurological Exam: Alert, Awake, CN II-XII Intact, Oriented x3 Additional comments: confused at times. Bilateral lower extremity strength +4/5, improved. Upper extremity strength is intact. Intention tremor is improved and essential tremor has improved. Assessment and Plan - Assessment and Plan (Free Text) Assessment: 53 year old male with past medical history of diabetes mellitus type II, hypertension, multiple sclerosis, psoriasis, kidney stones, colon polyps, and PTSD presented to the emergency department for frequent falls and worsening of tremors likely 2/2 to multiple sclerosis exacerbation vs. stroke. Plan: Frequent falls and shaking 2/2 to MS exacerbation vs. seizures vs. stroke vs. essential tremors vs. vertigo -Brain MRI 08/18: extensive white matter disease in the periventricular white matter extending into the occipital horns left greater than right (progression since last MRI). 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 -EEG 08/18: unremarkable -Patient is currently on day 3 of solumedrol 1 gm IV daily. Will stop solumedrol after today. -Continue with primidone for essential tremor -Continue with home meclizine for vertigo -Continue aspirin and lipitor for suspected new stroke. Patient is likely out of range for tPA. -As per neuro, patient should follow up outpatient at an MS center and should have rehab upon discharge. -Continue PT, OT Hypertension -Continue with YOKO clonidine, zestril, norvasc, and PRN hydralazine. Patient's lopressor was increased to 50 mg BID Uncontrolled Diabetes Mellitus -Refused levemir last night. Switched levemir to daily dose. -Continue with SSI and lispro 4 U AC Hypovitamin D -Continue with ergocalciferol Chronic back pain -Continue with flexeril BID Psoriasis -Continue home betamethasone cream GI prophylaxis: protonix 40 mg daily DVT prophylaxis: lovenox 40 mg daily Disposition: Patient is currently awaiting placement at acute rehabilitation at [place] but will need OT evaluation first prior to qualifying Patient plan discussed with attending. <Justine Jimenez - Last Filed: 08/20/18 14:10> Objective - Vital Signs/Intake and Output Vital Signs (last 24 hours): Temp Pulse Resp BP Pulse Ox 97.4 F L 118 H 18 184/104 H 98 08/20/18 06:00 08/20/18 10:43 08/20/18 06:00 08/20/18 10:43 08/20/18 06:00 Intake and Output: 08/20/18 08/20/18 06:59 18:59 Intake Total 540 Output Total 700 Balance -160 - Medications Medications: Current Medications Amlodipine Besylate (Norvasc) 10 mg PO DAILY [facility] Last Admin: 08/20/18 10:43 Dose: 10 mg Aspirin (Aspirin Chewable) 81 mg PO DAILY [facility] Last Admin: 08/20/18 10:43 Dose: 81 mg Atorvastatin Calcium (Lipitor) 40 mg PO DIN [facility] Last Admin: 08/19/18 17:23 Dose: 40 mg Betamethasone Dipropion Augmented (Diprolene Af) 0 gm TOP BID [facility] Last Admin: 08/20/18 10:44 Dose: 1 applic Clonazepam (Klonopin) 0.5 mg PO HS PRN; Protocol PRN Reason: Insomnia Last Admin: 08/19/18 09:07 Dose: 0.5 mg Clonidine HCl (Catapres) 0.1 mg PO TID [facility] Last Admin: 08/20/18 10:42 Dose: 0.1 mg Cyclobenzaprine HCl (Flexeril) 10 mg PO BID [facility] Last Admin: 08/18/18 17:47 Dose: 10 mg Dextrose (Dextrose 50% Inj) 0 ml IV STAT PRN; Protocol PRN Reason: Hypoglycemia Protocol Enoxaparin Sodium (Lovenox) 40 mg SC DAILY [facility]; Protocol Last Admin: 08/20/18 10:43 Dose: 40 mg Ergocalciferol (Drisdol 50,000 Intl Units Cap) 1 cap PO Q7D [facility] Last Admin: 08/18/18 16:19 Dose: 1 cap Hydralazine HCl (Apresoline) 10 mg IVP Q6 PRN PRN Reason: Systolic Blood Pressure Last Admin: 08/19/18 14:52 Dose: 10 mg Dextrose (Dextrose 5% In Water 1000 Ml) 1,000 mls @ 0 mls/hr IV .Q0M PRN; Protocol PRN Reason: Hypoglycemia Protocol Insulin Detemir (Levemir) 10 unit SC DAILY [facility] Insulin Human Lispro (Humalog) 4 units SC AC [facility] Last Admin: 08/20/18 12:20 Dose: 4 unit Insulin Human Regular (Humulin R) 0 units SC ACHS [facility]; Protocol Last Admin: 08/20/18 12:20 Dose: 15 units Lisinopril (Zestril) 10 mg PO DAILY [facility] Last Admin: 08/20/18 10:43 Dose: 10 mg Meclizine HCl (Antivert) 12.5 mg PO ONCE PRN PRN Reason: Dizziness Last Admin: 08/17/18 17:12 Dose: 12.5 mg Metoprolol Tartrate (Lopressor) 50 mg PO BID [facility] Pantoprazole Sodium (Protonix Ec Tab) 40 mg PO 0600 [facility] Last Admin: 08/20/18 05:52 Dose: 40 mg Primidone (Mysoline) 50 mg PO DAILY [facility] Last Admin: 08/20/18 10:42 Dose: 50 mg - Labs Labs: 08/20/18 07:00 08/20/18 07:00 PT 11.4 SECONDS (9.4-12.5) 08/16/18 20:40 INR 1.03 08/16/18 20:40 APTT 31.4 Seconds (26.9-38.3) 08/16/18 20:40 Attending/Attestation - Attestation I have personally seen and examined this patient.: Yes I have fully participated in the care of the patient.: Yes I have reviewed all pertinent clinical information, including history, physical exam and plan: Yes Notes (Text): 08/20/18 14:07 53 year old male with past medical history of diabetes, hypertension, and MS who presented with complaint of frequent falls and worsening tremors. EEG was negative. MRI brain showed extensive white matter disease in the periventricular white matter extending into the occipital horns, left greater than right, progressed since last MRI; and several small punctuate acute infarcts in the left hemisphere. Patient is started on aspirin and statin. Continue to monitor LFTs closely while on statins which is mildly elevated today. He is also on iv steroids; day 3/3. Will increase metoprolol today for uncontrolled hypertension. He is also hyperglycemic while on iv steroids but apparently has been refusing his levemir. He was counselled and agreed to start today. PT is following; recommended rehab. Will follow up with CMx/Sw on Wednesday. Justine Jimenez MD Hospitalist.
[2018-08-20 17:56] VITALS: RESP 20
[2018-08-21] MEDS ORDERED: Insulin Regular 1 UNITS/0.01 ML ML SC STA (02:08)
[2018-08-21] MEDS: Pantoprazole 40 mg EC Tab PO SCH (06:32)
[2018-08-21] MEDS: Insulin Regular 1 UNITS/0.01 ML ML SC SCH ×4 (08:03→22:21)
[2018-08-21] MEDS: Insulin Lispro 1 UNITS/0.01 ML SC SCH ×3 (08:03→17:19)
[2018-08-21 08:22] LABS: HEMOGLOBIN 13.6 g/dL (14.0-18.0); LYMPH % 7.4 % (22.0-35.0); MEAN CELL VOLUME 84.5 fl (80.0-105.0); MEAN CORPUSCULAR HEMOGLOBIN 28.6 pg (25.0-35.0); MEAN CORPUSCULAR HGB CONC 33.8 g/dl (31.0-37.0); MEAN PLATELET VOLUME 11.4 fl (7.0-11.0); MONO # 0.3 (0.1-0.6); MONO % 2.4 % (1.0-6.0); RBC 4.76 10^6/uL (3.5-6.1); RED CELL DISTRIBUTION WIDTH 13.2 % (11.5-14.5); WHITE BLOOD COUNT 13.6 10^3/uL (4.5-11.0)
[2018-08-21] MEDS: Enoxaparin 40 mg Syringe SC SCH ×2 (08:26→12:24)
[2018-08-21 09:05] LABS: ALB/GLOB RATIO 1.2 (1.1-1.8); CALCIUM 9.2 mg/dL (8.4-10.5)
[2018-08-21] MEDS ORDERED: Potassium Chloride 20 mEq ER Tab PO ONE (09:37)
--- NOTE | 2018-08-21 09:41 | CP.PCM.PN ---
<Mario Soliman - Last Filed: 08/21/18 12:25> Subjective - Date & Time of Evaluation Date of Evaluation: 08/21/18 Time of Evaluation: 06:00 - Subjective Subjective: Patient seen and evaluated bedside in AM. No acute issues overnight. Patient denies chest pain, SOB, fever, chills or any other complaints at this time. Objective - Vital Signs/Intake and Output Vital Signs (last 24 hours): Temp Pulse Resp BP Pulse Ox 98 F 100 H 20 196/130 H 95 08/21/18 06:00 08/21/18 08:28 08/21/18 06:00 08/21/18 08:28 08/21/18 06:00 Intake and Output: 08/21/18 08/21/18 06:59 18:59 Intake Total 3820 Balance 3820 - Medications Medications: Current Medications Amlodipine Besylate (Norvasc) 10 mg PO DAILY [facility] Last Admin: 08/21/18 08:27 Dose: 10 mg Aspirin (Aspirin Chewable) 81 mg PO DAILY [facility] Last Admin: 08/21/18 08:26 Dose: 81 mg Atorvastatin Calcium (Lipitor) 40 mg PO DIN [facility] Last Admin: 08/20/18 17:46 Dose: 40 mg Betamethasone Dipropion Augmented (Diprolene Af) 0 gm TOP BID [facility] Last Admin: 08/20/18 17:46 Dose: 1 applic Clonazepam (Klonopin) 0.5 mg PO HS PRN; Protocol PRN Reason: Insomnia Last Admin: 08/19/18 09:07 Dose: 0.5 mg Clonidine HCl (Catapres) 0.1 mg PO TID [facility] Last Admin: 08/21/18 08:28 Dose: 0.1 mg Cyclobenzaprine HCl (Flexeril) 10 mg PO BID [facility] Last Admin: 08/18/18 17:47 Dose: 10 mg Dextrose (Dextrose 50% Inj) 0 ml IV STAT PRN; Protocol PRN Reason: Hypoglycemia Protocol Enoxaparin Sodium (Lovenox) 40 mg SC DAILY [facility]; Protocol Last Admin: 08/21/18 08:26 Dose: 40 mg Ergocalciferol (Drisdol 50,000 Intl Units Cap) 1 cap PO Q7D [facility] Last Admin: 08/18/18 16:19 Dose: 1 cap Hydralazine HCl (Apresoline) 10 mg IVP Q6 PRN PRN Reason: Systolic Blood Pressure Last Admin: 08/19/18 14:52 Dose: 10 mg Dextrose (Dextrose 5% In Water 1000 Ml) 1,000 mls @ 0 mls/hr IV .Q0M PRN; Protocol PRN Reason: Hypoglycemia Protocol Insulin Detemir (Levemir) 10 unit SC BID [facility] Insulin Human Lispro (Humalog) 4 units SC AC [facility] Last Admin: 08/21/18 08:03 Dose: 4 unit Insulin Human Regular (Humulin R) 0 units SC ACHS [facility]; Protocol Last Admin: 08/21/18 08:03 Dose: 10 units Lisinopril (Zestril) 10 mg PO DAILY [facility] Last Admin: 08/21/18 08:28 Dose: 10 mg Meclizine HCl (Antivert) 12.5 mg PO ONCE PRN PRN Reason: Dizziness Last Admin: 08/17/18 17:12 Dose: 12.5 mg Metoprolol Tartrate (Lopressor) 50 mg PO BID [facility] Last Admin: 08/21/18 08:27 Dose: 50 mg Pantoprazole Sodium (Protonix Ec Tab) 40 mg PO 0600 [facility] Last Admin: 08/21/18 06:32 Dose: 40 mg Potassium Chloride (K-Dur 20 Meq Er Tab) 20 meq PO ONCE ONE Stop: 08/21/18 09:38 Primidone (Mysoline) 50 mg PO DAILY [facility] Last Admin: 08/21/18 08:29 Dose: 50 mg - Labs Labs: 08/21/18 07:00 08/21/18 07:00 PT 11.4 SECONDS (9.4-12.5) 08/16/18 20:40 INR 1.03 08/16/18 20:40 APTT 31.4 Seconds (26.9-38.3) 08/16/18 20:40 - Constitutional Appears: Non-toxic, No Acute Distress - Eye Exam Eye Exam: Normal appearance, PERRL - ENT Exam ENT Exam: Mucous Membranes Moist - Respiratory Exam Respiratory Exam: Clear to Ausculation Bilateral, NORMAL BREATHING PATTERN - Cardiovascular Exam Cardiovascular Exam: REGULAR RHYTHM, +S1, +S2 - GI/Abdominal Exam GI & Abdominal Exam: Soft. absent: Tenderness - Extremities Exam Extremities Exam: absent: Pedal Edema, Tenderness - Neurological Exam Neurological Exam: Alert, Awake, Oriented x3 Assessment and Plan - Assessment and Plan (Free Text) Assessment: 53 year old male with past medical history of diabetes mellitus type II, hypertension, multiple sclerosis, psoriasis, kidney stones, colon polyps, and PTSD presented to the emergency department for frequent falls and worsening of tremors likely 2/2 to multiple sclerosis exacerbation vs. stroke. Plan: Frequent falls and shaking 2/2 to MS exacerbation vs. seizures vs. stroke vs. essential tremors vs. vertigo -Brain MRI 08/18: extensive white matter disease in the periventricular white matter extending into the occipital horns left greater than right (progression since last MRI). 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 -EEG 08/18: unremarkable -Patient status post Solumedrol IV 1g a da for 3 days, no need to taper per neuro -Continue with primidone for essential tremor -Continue with home meclizine for vertigo -Continue aspirin and lipitor, will follow LFTS -As per neuro, patient should follow up outpatient at an MS center and should have rehab upon discharge. -Continue PT, OT Hypertension -BP still elevated this AM -Continue with YOKO clonidine, norvasc, and PRN hydralazine -lopressor 50 BID -lisinopril extra dose 10mg given, will start 20mg tomorrow -continue to monitor Uncontrolled Diabetes Mellitus -Blood sugar 369 in AM -Levemir increased to 10 BID starting in evening -continue to monitor Hypovitamin D -Continue with ergocalciferol Chronic back pain -Continue with flexeril BID Psoriasis -Continue home betamethasone cream GI prophylaxis: protonix 40 mg daily DVT prophylaxis: lovenox 40 mg daily Disposition: Patient is currently awaiting placement at acute rehabilitation at [place] <Justine Jimenez - Last Filed: 08/21/18 12:58> Objective - Vital Signs/Intake and Output Vital Signs (last 24 hours): Temp Pulse Resp BP Pulse Ox 98 F 90 20 169/103 H 95 08/21/18 06:00 08/21/18 10:18 08/21/18 06:00 08/21/18 10:18 08/21/18 06:00 Intake and Output: 08/21/18 08/21/18 06:59 18:59 Intake Total 3820 Balance 3820 - Medications Medications: Current Medications Amlodipine Besylate (Norvasc) 10 mg PO DAILY [facility] Last Admin: 08/21/18 12:25 Dose: Not Given Aspirin (Aspirin Chewable) 81 mg PO DAILY [facility] Last Admin: 08/21/18 12:23 Dose: Not Given Atorvastatin Calcium (Lipitor) 40 mg PO DIN [facility] Last Admin: 08/20/18 17:46 Dose: 40 mg Betamethasone Dipropion Augmented (Diprolene Af) 0 gm TOP BID [facility] Last Admin: 08/21/18 12:24 Dose: Not Given Clonazepam (Klonopin) 0.5 mg PO HS PRN; Protocol PRN Reason: Insomnia Last Admin: 08/19/18 09:07 Dose: 0.5 mg Clonidine HCl (Catapres) 0.1 mg PO TID [facility] Last Admin: 08/21/18 12:23 Dose: Not Given Cyclobenzaprine HCl (Flexeril) 10 mg PO BID [facility] Last Admin: 08/18/18 17:47 Dose: 10 mg Dextrose (Dextrose 50% Inj) 0 ml IV STAT PRN; Protocol PRN Reason: Hypoglycemia Protocol Enoxaparin Sodium (Lovenox) 40 mg SC DAILY [facility]; Protocol Last Admin: 08/21/18 12:24 Dose: Not Given Ergocalciferol (Drisdol 50,000 Intl Units Cap) 1 cap PO Q7D [facility] Last Admin: 08/18/18 16:19 Dose: 1 cap Hydralazine HCl (Apresoline) 10 mg IVP Q6 PRN PRN Reason: Systolic Blood Pressure Last Admin: 08/19/18 14:52 Dose: 10 mg Dextrose (Dextrose 5% In Water 1000 Ml) 1,000 mls @ 0 mls/hr IV .Q0M PRN; Protocol PRN Reason: Hypoglycemia Protocol Insulin Detemir (Levemir) 10 unit SC BID [facility] Insulin Human Lispro (Humalog) 7 units SC AC [facility] Insulin Human Regular (Humulin R) 0 units SC ACHS [facility]; Protocol Last Admin: 08/21/18 12:18 Dose: 12 units Lisinopril (Zestril) 20 mg PO DAILY [facility] Meclizine HCl (Antivert) 12.5 mg PO ONCE PRN PRN Reason: Dizziness Last Admin: 08/17/18 17:12 Dose: 12.5 mg Metoprolol Tartrate (Lopressor) 50 mg PO BID [facility] Last Admin: 08/21/18 12:24 Dose: Not Given Pantoprazole Sodium (Protonix Ec Tab) 40 mg PO 0600 [facility] Last Admin: 08/21/18 06:32 Dose: 40 mg Primidone (Mysoline) 50 mg PO DAILY [facility] Last Admin: 08/21/18 12:25 Dose: Not Given - Labs Labs: 08/21/18 07:00 08/21/18 09:58 PT 11.4 SECONDS (9.4-12.5) 08/16/18 20:40 INR 1.03 08/16/18 20:40 APTT 31.4 Seconds (26.9-38.3) 08/16/18 20:40 Attending/Attestation - Attestation I have personally seen and examined this patient.: Yes I have fully participated in the care of the patient.: Yes I have reviewed all pertinent clinical information, including history, physical exam and plan: Yes Notes (Text): 08/21/18 12:53 53 year old male with past medical history of diabetes, hypertension, and MS who presented with complaint of frequent falls and worsening tremors. EEG was negative. MRI brain showed extensive white matter disease in the periventricular white matter extending into the occipital horns, left greater than right, progressed since last MRI; and several small punctuate acute infarcts in the left hemisphere. Patient is started on aspirin and statin. Continue to monitor LFTs closely while on statins. He is s/p 3 days of iv steroids. Blood pressure and blood sugars remain elevated today. Will increase lisinopril and levemir. Continue with physical therapy is is recommending rehab. Will follow up with CMx/Sw tomorrow. Justine Jimenez MD Hospitalist.
[2018-08-21] MEDS ORDERED: Insulin Detemir 100 units/ml Vial (Levemir) SC SCH ×2 (10:00)
[2018-08-21 10:28] LABS: ALB/GLOB RATIO 1.2 (1.1-1.8); ALBUMIN 3.9 g/dL (3.0-4.8); ALT/SGPT 73 U/L (7-56); AST/SGOT 52 U/L (17-59); BLOOD UREA NITROGEN 42 mg/dL (7-21); CALCIUM 9.2 mg/dL (8.4-10.5); GFR NON-AFRICAN AMERICAN 53
[2018-08-21] MEDS: Betamethasone Dip 0.05% Cream(15 gm) TOP SCH ×2 (12:24→17:22)
[2018-08-21] MEDS: Insulin Detemir 100 units/ml Vial (Levemir) SC SCH (17:18)
[2018-08-21] MEDS ORDERED: Insulin Regular 1 UNITS/0.01 ML ML SC ONE (22:09)
[2018-08-22] MEDS: Pantoprazole 40 mg EC Tab PO SCH (06:08)
[2018-08-22 08:15] VITALS: TEMP 97.6; O2SAT 96
[2018-08-22] MEDS: Insulin Regular 1 UNITS/0.01 ML ML SC SCH ×2 (08:50→12:26)
[2018-08-22] MEDS: Insulin Lispro 1 UNITS/0.01 ML SC SCH ×2 (08:51→12:27)
[2018-08-22 09:04] LABS: EOS # 0.1 (0.0-0.7); EOS % 0.4 % (1.5-5.0); HEMOGLOBIN 14.3 g/dL (14.0-18.0); LYMPH # 3.3 (1.2-3.4); LYMPH % 24.7 % (22.0-35.0); MEAN CELL VOLUME 83.8 fl (80.0-105.0); MEAN CORPUSCULAR HEMOGLOBIN 28.9 pg (25.0-35.0); MEAN CORPUSCULAR HGB CONC 34.5 g/dl (31.0-37.0); MEAN PLATELET VOLUME 10.7 fl (7.0-11.0); MONO # 0.7 (0.1-0.6); MONO % 5.4 % (1.0-6.0); RBC 4.94 10^6/uL (3.5-6.1); RED CELL DISTRIBUTION WIDTH 13.2 % (11.5-14.5); WHITE BLOOD COUNT 13.5 10^3/uL (4.5-11.0)
[2018-08-22 09:11] LABS: ALB/GLOB RATIO 1.2 (1.1-1.8); ALBUMIN 4.1 g/dL (3.0-4.8); ALT/SGPT 69 U/L (7-56); AST/SGOT 46 U/L (17-59); BLOOD UREA NITROGEN 39 mg/dL (7-21); CALCIUM 8.9 mg/dL (8.4-10.5); GFR NON-AFRICAN AMERICAN 53
[2018-08-22] MEDS: Enoxaparin 40 mg Syringe SC SCH (10:04)
[2018-08-22] MEDS: Betamethasone Dip 0.05% Cream(15 gm) TOP SCH (10:05)
[2018-08-22] MEDS: Insulin Detemir 100 units/ml Vial (Levemir) SC SCH (10:08)
[2018-08-22] MEDS ORDERED: Potassium Chloride 20 mEq ER Tab PO ONE (11:52)
--- NOTE | 2018-08-22 14:10 | CP.PCM.DIS ---
<LeighfrancineAnita rauschadinvirginia - Last Filed: 08/22/18 14:49> Provider - Provider Date of Admission: 08/18/18 09:48 Attending physician: Justine Jimenez MD Primary care physician: Dr. Peace Consults: 08/17/18 00:13 Physician Consult Routine Comment: Consulting Provider: Jamshid Hernandez Consulting Physician: Jamshid Hernandez Reason for Consult: MS, tremors 08/17/18 00:37 Cardiology Consult Routine Comment: Consulting Provider: Rm Cooley Consulting Physician: Rm Cooley Reason for Consult: chest pain 08/17/18 01:39 Social Work Referral Routine Comment: s/p fall Physician Instructions: Reason For Exam: evaluation 08/19/18 12:47 Nursing Referral for Wound Care Routine Comment: Physician Instructions: Reason For Exam: psoriasis Time Spent in preparation of Discharge (in minutes): 60 Diagnosis - Discharge Diagnosis (1) Multiple sclerosis Status: Chronic Hospital Course - Lab Results Lab Results: Micro Results 08/17/18 00:42 Urine,Clean Catch Urine Culture - Final No Growth (<1,000 CFU/ML) Most Recent Lab Values WBC 13.5 10^3/uL (4.5-11.0) H 08/22/18 08:50 RBC 4.94 10^6/uL (3.5-6.1) 08/22/18 08:50 Hgb 14.3 g/dL (14.0-18.0) 08/22/18 08:50 Hct 41.4 % (42.0-52.0) L 08/22/18 08:50 MCV 83.8 fl (80.0-105.0) 08/22/18 08:50 MCH 28.9 pg (25.0-35.0) 08/22/18 08:50 MCHC 34.5 g/dl (31.0-37.0) 08/22/18 08:50 RDW 13.2 % (11.5-14.5) 08/22/18 08:50 Plt Count 211 10^3/uL (120.0-450.0) 08/22/18 08:50 MPV 10.7 fl (7.0-11.0) 08/22/18 08:50 Neut % (Auto) 69.5 % (50.0-68.0) H 08/22/18 08:50 Lymph % (Auto) 24.7 % (22.0-35.0) 08/22/18 08:50 [place] % (Auto) 5.4 % (1.0-6.0) 08/22/18 08:50 Eos % (Auto) 0.4 % (1.5-5.0) L 08/22/18 08:50 Baso % (Auto) 0.0 % (0.0-3.0) 08/22/18 08:50 Lymph # (Auto) 3.3 (1.2-3.4) 08/22/18 08:50 [place] # (Auto) 0.7 (0.1-0.6) H 08/22/18 08:50 Eos # (Auto) 0.1 (0.0-0.7) 08/22/18 08:50 Baso # (Auto) 0.00 K/mm3 (0.0-2.0) 08/22/18 08:50 Absolute Neuts (auto) 9.35 (1.4-6.5) H 08/22/18 08:50 Neutrophils % (Manual) 95 % (50.0-70.0) H 08/19/18 08:30 Lymphocytes % (Manual) 3 % (22.0-35.0) L 08/19/18 08:30 Monocytes % (Manual) 2 % (1.0-6.0) 08/19/18 08:30 Platelet Evaluation Normal (NORMAL) 08/19/18 08:30 PT 11.4 SECONDS (9.4-12.5) 08/16/18 20:40 INR 1.03 08/16/18 20:40 APTT 31.4 Seconds (26.9-38.3) 08/16/18 20:40 D-Dimer, Quantitative 203 ng/mlDDU (0-243) 08/17/18 11:40 Sodium 135 mmol/L (132-148) 08/22/18 08:50 Potassium 3.2 mmol/L (3.6-5.0) L 08/22/18 08:50 Chloride 95 mmol/L (98-107) L 08/22/18 08:50 Carbon Dioxide 30 mmol/L (21-33) 08/22/18 08:50 Anion Gap 13 (10-20) 08/22/18 08:50 BUN 39 mg/dL (7-21) H 08/22/18 08:50 Creatinine 1.4 mg/dl (0.8-1.5) 08/22/18 08:50 Est GFR ( Amer) > 60 08/22/18 08:50 Est GFR (Non-Af Amer) 53 08/22/18 08:50 POC Glucose (mg/dL) 212 mg/dL (65-110) H 08/22/18 11:20 Random Glucose 233 mg/dL (70-110) H 08/22/18 08:50 Hemoglobin A1c 9.3 % (4.2-6.5) H D 08/18/18 06:20 Calcium 8.9 mg/dL (8.4-10.5) 08/22/18 08:50 Phosphorus 3.2 mg/dL (2.5-4.5) 08/18/18 06:20 Magnesium 1.7 mg/dL (1.7-2.2) 08/18/18 06:20 Total Bilirubin 0.6 mg/dL (0.2-1.3) 08/22/18 08:50 AST 46 U/L (17-59) 08/22/18 08:50 ALT 69 U/L (7-56) H 08/22/18 08:50 Alkaline Phosphatase 69 U/L (38-126) 08/22/18 08:50 Troponin I 0.02 ng/mL 08/18/18 16:00 Total Protein 7.5 g/dL (5.8-8.3) 08/22/18 08:50 Albumin 4.1 g/dL (3.0-4.8) 08/22/18 08:50 Globulin 3.4 gm/dL 08/22/18 08:50 Albumin/Globulin Ratio 1.2 (1.1-1.8) 08/22/18 08:50 Triglycerides 323 mg/dL (35-160) H 08/18/18 06:00 Cholesterol 171 mg/dL (130-200) 08/18/18 06:00 LDL Cholesterol Direct 98 mg/dL (0-129) 08/18/18 06:00 HDL Cholesterol 21 mg/dL (29-60) L 08/18/18 06:00 25-OH Vitamin D Total 13.1 NG/ML (30.0-100.0) L 08/17/18 15:50 TSH 3rd Generation 1.16 mIU/mL (0.46-4.68) 08/18/18 06:20 Urine Color Yellow (YELLOW) 08/17/18 00:42 Urine Appearance Sl cloudy (CLEAR) 08/17/18 00:42 Urine pH 6.5 (4.7-8.0) 08/17/18 00:42 Ur Specific [place] >= 1.030 (1.005-1.035) 08/17/18 00:42 Urine Protein 100 mg/dL (<30 mg/dL) H 08/17/18 00:42 Urine Glucose (UA) >=1000 mg/dL (NEGATIVE) 08/17/18 00:42 Urine Ketones Negative mg/dL (NEGATIVE) 08/17/18 00:42 Urine Blood Moderate (NEGATIVE) H 08/17/18 00:42 Urine Nitrate Negative (NEGATIVE) 08/17/18 00:42 Urine Bilirubin Negative (NEGATIVE) 08/17/18 00:42 Urine Urobilinogen 0.2 E.U./dL (<1 E.U./dL) 08/17/18 00:42 Ur Leukocyte Esterase Negative Angelika/uL (NEGATIVE) 08/17/18 00:42 Urine RBC 2 - 5 /hpf (0-2) H 08/17/18 00:42 Urine WBC 1 - 3 /hpf (0-6) 08/17/18 00:42 Ur Epithelial Cells 0 - 2 /hpf (0-5) 08/17/18 00:42 Urine Bacteria Rare /hpf (NONE) 08/17/18 00:42 Urine Opiates Screen Positive (NEGATIVE) H 08/17/18 00:42 Urine Methadone Screen Negative (NEGATIVE) 08/17/18 00:42 Ur Barbiturates Screen Negative (NEGATIVE) 08/17/18 00:42 Ur Phencyclidine Scrn Negative (NEGATIVE) 08/17/18 00:42 Ur Amphetamines Screen Negative (NEGATIVE) 08/17/18 00:42 U Benzodiazepines Scrn Negative (NEGATIVE) 08/17/18 00:42 U Oth Cocaine Metabols Negative (NEGATIVE) 08/17/18 00:42 U Cannabinoids Screen Negative (NEGATIVE) 08/17/18 00:42 Alcohol, Quantitative < 10 mg/dL (0-10) 08/16/18 20:40 - Hospital Course Hospital Course: Paula Harris, PGY-1, Internal Medicine Discharge Summary for Dr. Ryan 53 year old male with past medical history of diabetes mellitus type II, hypertension, multiple sclerosis, psoriasis, kidney stones, colon polyps, and PTSD presented to the emergency department for frequent falls and worsening of tremors likely 2/2 to multiple sclerosis exacerbation vs. stroke. Patient was found to have severe intention tremor, bilateral lower extremity weakness, and intranuclear opthalmoplegia. Brain MRI showed extensive white matter disease in the periventricular white matter extending into the occipital horns left greater than right (progression since last MRI). It also showed several small punctuate acute infarcts in the left hemisphere. Patient was given solumedrol 1 gm IV for 3 days with major improvement of bilateral lower extremity weakness, intention tremor, and intranuclear opthalmoplegia. Patient's tremors resolved with primidone. Patient's dizziness improved with meclizine. Patient was out of the range for tPA and was started on aspirin and lipitor for acute stroke. Neurology recommended that he should follow up at an outpatient MS center. Patient has been hypertensive throughout this admission. Patient's systollic blood pressure today was in the 170s. As a result, patient was on home clonidine, norvasc, and lopressor though this admission. Lopressor dose was increased and zestril was added with subsequent increase in dose for further management of blood pressure. Patient's blood glucose was uncontrolled in this admission. Patient was started on levemir 10 U which was increased to BID and lispro 4 which was increased to lispro 7 U AC with a high sliding scale insulin for further correction. Patient's weakness significantly improved throughout this admission after treated for MS flare, and stroke. Patient's tremor also ceased. Patient was recommended to go to acute rehabilitation by physical and occupational therapy, however, patient does not want to go to rehab and would like to go home instead. Patient was found to be stable and ready for discharge. Patient was told to take all his home medications as prescribed and follow up with PCP in 7-14 days. Patient was told to follow up with neurologist, Dr. Rogel, as soon as possible. Patient was told to check his blood pressure daily and check his sugar 3 times a day. Patient was told return to the emergency department if he had any new or concerning symptoms. As per neurology, he should also follow up at a MS center outpatient. Patient has home services set up already. This is a brief summary of the events that occurred during this hospital visit. For more information, please refer to the hospital documentation. - Date & Time of H&P Date of H&P: 08/16/18 Time of H&P: 23:20 Discharge Exam - Head Exam Head Exam: NORMOCEPHALIC - Eye Exam Eye Exam: EOMI, PERRL Additional comments: peripheral vision loss - Respiratory Exam Respiratory Exam: Clear to PA & Lateral, NORMAL BREATHING PATTERN - Cardiovascular Exam Cardiovascular Exam: REGULAR RHYTHM, RRR - GI/Abdominal Exam GI & Abdominal Exam: Normal Bowel Sounds, Soft. absent: Tenderness - Extremities Exam Extremities exam: full ROM Additional comments: now able to ambulate - Neurological Exam Neurological exam: Alert, CN II-XII Intact, Oriented x3 - Skin Additional comments: red and silver patches on his back Discharge Plan - Discharge Medications Prescriptions: amLODIPine [Norvasc] 10 mg PO DAILY 14 Days #14 tab Aspirin [Aspirin Chewable] 81 mg PO DAILY 14 Days #14 chew Atorvastatin [Lipitor] 40 mg PO DIN 14 Days #14 tab Ergocalciferol [Drisdol 50,000 Intl Units Cap] 1 cap PO Q7D 14 Days #2 cap Insulin Detemir [Levemir] 10 unit SC BID 14 Days #280 unit Insulin Lispro [humALOG] 7 units SC AC 280 Days #280 unit Lisinopril [Zestril] 40 mg PO DAILY 30 Days #30 tab Metoprolol Tartrate [Lopressor] 50 mg PO BID 14 Days #28 tab - Follow Up Plan Condition: GOOD Disposition: HOME/ ROUTINE Instructions: Multiple Sclerosis in Adults, Preventing Falls, Multiple Sclerosis, Adult (DC) Additional Instructions: Please follow up with PCP in 7-14 days. Please follow up with neurologist, Dr. Rogel, as soon as possible. Please follow up at a MS center outpatient. Please take all home medications as prescribed. Please monitor blood pressure daily and keep a log of daily blood pressures Please monitor blood glucose 3 times a day before meals. Please return to the emergency department if you have any or concerning symptoms. Referrals: Carmen Peace MD [Medical Doctor] - Wing Rogel MD [Medical Doctor] - <Beatriz Ryan - Last Filed: 08/23/18 14:28> Provider - Provider Date of Admission: 08/18/18 09:48 Attending physician: Justine Jimenez MD Consults: 08/17/18 00:13 Physician Consult Routine Comment: Consulting Provider: Jamshid Hernandez Consulting Physician: Jamshid Hernandez Reason for Consult: MS, tremors 08/17/18 00:37 Cardiology Consult Routine Comment: Consulting Provider: Rm Cooley Consulting Physician: Rm Cooley Reason for Consult: chest pain 08/17/18 01:39 Social Work Referral Routine Comment: s/p fall Physician Instructions: Reason For Exam: evaluation 08/19/18 12:47 Nursing Referral for Wound Care Routine Comment: Physician Instructions: Reason For Exam: psoriasis Hospital Course - Lab Results Lab Results: Micro Results 08/17/18 00:42 Urine,Clean Catch Urine Culture - Final No Growth (<1,000 CFU/ML) Most Recent Lab Values WBC 13.5 10^3/uL (4.5-11.0) H 08/22/18 08:50 RBC 4.94 10^6/uL (3.5-6.1) 08/22/18 08:50 Hgb 14.3 g/dL (14.0-18.0) 08/22/18 08:50 Hct 41.4 % (42.0-52.0) L 08/22/18 08:50 MCV 83.8 fl (80.0-105.0) 08/22/18 08:50 MCH 28.9 pg (25.0-35.0) 08/22/18 08:50 MCHC 34.5 g/dl (31.0-37.0) 08/22/18 08:50 RDW 13.2 % (11.5-14.5) 08/22/18 08:50 Plt Count 211 10^3/uL (120.0-450.0) 08/22/18 08:50 MPV 10.7 fl (7.0-11.0) 08/22/18 08:50 Neut % (Auto) 69.5 % (50.0-68.0) H 08/22/18 08:50 Lymph % (Auto) 24.7 % (22.0-35.0) 08/22/18 08:50 [place] % (Auto) 5.4 % (1.0-6.0) 08/22/18 08:50 Eos % (Auto) 0.4 % (1.5-5.0) L 08/22/18 08:50 Baso % (Auto) 0.0 % (0.0-3.0) 08/22/18 08:50 Lymph # (Auto) 3.3 (1.2-3.4) 08/22/18 08:50 [place] # (Auto) 0.7 (0.1-0.6) H 08/22/18 08:50 Eos # (Auto) 0.1 (0.0-0.7) 08/22/18 08:50 Baso # (Auto) 0.00 K/mm3 (0.0-2.0) 08/22/18 08:50 Absolute Neuts (auto) 9.35 (1.4-6.5) H 08/22/18 08:50 Neutrophils % (Manual) 95 % (50.0-70.0) H 08/19/18 08:30 Lymphocytes % (Manual) 3 % (22.0-35.0) L 08/19/18 08:30 Monocytes % (Manual) 2 % (1.0-6.0) 08/19/18 08:30 Platelet Evaluation Normal (NORMAL) 08/19/18 08:30 PT 11.4 SECONDS (9.4-12.5) 08/16/18 20:40 INR 1.03 08/16/18 20:40 APTT 31.4 Seconds (26.9-38.3) 08/16/18 20:40 D-Dimer, Quantitative 203 ng/mlDDU (0-243) 08/17/18 11:40 Sodium 135 mmol/L (132-148) 08/22/18 08:50 Potassium 3.2 mmol/L (3.6-5.0) L 08/22/18 08:50 Chloride 95 mmol/L (98-107) L 08/22/18 08:50 Carbon Dioxide 30 mmol/L (21-33) 08/22/18 08:50 Anion Gap 13 (10-20) 08/22/18 08:50 BUN 39 mg/dL (7-21) H 08/22/18 08:50 Creatinine 1.4 mg/dl (0.8-1.5) 08/22/18 08:50 Est GFR ( Amer) > 60 08/22/18 08:50 Est GFR (Non-Af Amer) 53 08/22/18 08:50 POC Glucose (mg/dL) 161 mg/dL (65-110) H 08/22/18 16:19 Random Glucose 233 mg/dL (70-110) H 08/22/18 08:50 Hemoglobin A1c 9.3 % (4.2-6.5) H D 08/18/18 06:20 Calcium 8.9 mg/dL (8.4-10.5) 08/22/18 08:50 Phosphorus 3.2 mg/dL (2.5-4.5) 08/18/18 06:20 Magnesium 1.7 mg/dL (1.7-2.2) 08/18/18 06:20 Total Bilirubin 0.6 mg/dL (0.2-1.3) 08/22/18 08:50 AST 46 U/L (17-59) 08/22/18 08:50 ALT 69 U/L (7-56) H 08/22/18 08:50 Alkaline Phosphatase 69 U/L (38-126) 08/22/18 08:50 Troponin I 0.02 ng/mL 08/18/18 16:00 Total Protein 7.5 g/dL (5.8-8.3) 08/22/18 08:50 Albumin 4.1 g/dL (3.0-4.8) 08/22/18 08:50 Globulin 3.4 gm/dL 08/22/18 08:50 Albumin/Globulin Ratio 1.2 (1.1-1.8) 08/22/18 08:50 Triglycerides 323 mg/dL (35-160) H 08/18/18 06:00 Cholesterol 171 mg/dL (130-200) 08/18/18 06:00 LDL Cholesterol Direct 98 mg/dL (0-129) 08/18/18 06:00 HDL Cholesterol 21 mg/dL (29-60) L 08/18/18 06:00 25-OH Vitamin D Total 13.1 NG/ML (30.0-100.0) L 08/17/18 15:50 TSH 3rd Generation 1.16 mIU/mL (0.46-4.68) 08/18/18 06:20 Urine Color Yellow (YELLOW) 08/17/18 00:42 Urine Appearance Sl cloudy (CLEAR) 08/17/18 00:42 Urine pH 6.5 (4.7-8.0) 08/17/18 00:42 Ur Specific [place] >= 1.030 (1.005-1.035) 08/17/18 00:42 Urine Protein 100 mg/dL (<30 mg/dL) H 08/17/18 00:42 Urine Glucose (UA) >=1000 mg/dL (NEGATIVE) 08/17/18 00:42 Urine Ketones Negative mg/dL (NEGATIVE) 08/17/18 00:42 Urine Blood Moderate (NEGATIVE) H 08/17/18 00:42 Urine Nitrate Negative (NEGATIVE) 08/17/18 00:42 Urine Bilirubin Negative (NEGATIVE) 08/17/18 00:42 Urine Urobilinogen 0.2 E.U./dL (<1 E.U./dL) 08/17/18 00:42 Ur Leukocyte Esterase Negative Angelika/uL (NEGATIVE) 08/17/18 00:42 Urine RBC 2 - 5 /hpf (0-2) H 08/17/18 00:42 Urine WBC 1 - 3 /hpf (0-6) 08/17/18 00:42 Ur Epithelial Cells 0 - 2 /hpf (0-5) 08/17/18 00:42 Urine Bacteria Rare /hpf (NONE) 08/17/18 00:42 Urine Opiates Screen Positive (NEGATIVE) H 08/17/18 00:42 Urine Methadone Screen Negative (NEGATIVE) 08/17/18 00:42 Ur Barbiturates Screen Negative (NEGATIVE) 08/17/18 00:42 Ur Phencyclidine Scrn Negative (NEGATIVE) 08/17/18 00:42 Ur Amphetamines Screen Negative (NEGATIVE) 08/17/18 00:42 U Benzodiazepines Scrn Negative (NEGATIVE) 08/17/18 00:42 U Oth Cocaine Metabols Negative (NEGATIVE) 08/17/18 00:42 U Cannabinoids Screen Negative (NEGATIVE) 08/17/18 00:42 Alcohol, Quantitative < 10 mg/dL (0-10) 08/16/18 20:40 Attending/Attestation - Attestation I have personally seen and examined this patient.: Yes I have fully participated in the care of the patient.: Yes I have reviewed all pertinent clinical information, including history, physical exam and plan: Yes Notes (Text): 08/23/18 14:22 Patient was seen and examined with internist medical doctor md. 53 year old male with past medical history of diabetes, hypertension, and MS who presented with complaint of frequent falls and worsening tremors. EEG was negative. MRI brain showed extensive white matter disease in the periventricular white matter extending into the occipital horns, left greater than right, progressed since last MRI; and several small punctuate acute infarcts in the left hemisphere. He is s/p 3 days of iv steroids for MS exacerbation. Patient is started on aspirin and statin. Physical therapy recommended acute rehab but patient has refused to go to rehab.He wants to be discharged home. The risk was discussed in detail with him. Patient will be discharged home with home PT. Prognosis is guarded. Management plan was discussed in detail with patient
[2018-08-22 15:10] VITALS: BP 136/87; PULSE 79
== END 2018-08-22 20:21 | disposition home or self-care (01) | DRG 58 ==
LOC: ED 20:19 → ERH 23:18 → 2RNO 08-17 00:59 → OBSVTOIN 08-18 09:48 → 3RNO 08-21 12:31
PROVIDERS: ADMIT Hospitalist; ATTEND Internal Medicine
DX: G35 Multiple sclerosis (principal); I63.9 Cerebral infarction, unspecified; I10 Essential (primary) hypertension; I16.0 Hypertensive urgency; E11.65 Type 2 diabetes mellitus with hyperglycemia; E11.51 Type 2 diabetes mellitus with diabetic peripheral angiopathy without gangrene; R07.89 Other chest pain; L40.9 Psoriasis, unspecified; F43.10 Post-traumatic stress disorder, unspecified; R00.0 Tachycardia, unspecified; E87.6 Hypokalemia; G40.909 Epilepsy, unspecified, not intractable, without status epilepticus; R29.6 Repeated falls; Z87.442 Personal history of urinary calculi; Z91.14 Patient's other noncompliance with medication regimen; E11.22 Type 2 diabetes mellitus with diabetic chronic kidney disease; G25.2 Other specified forms of tremor; I12.9 Hypertensive chronic kidney disease with stage 1 through stage 4 chronic kidney disease, or unspecified chronic kidney disease; K59.00 Constipation, unspecified; N18.9 Chronic kidney disease, unspecified; N20.0 Calculus of kidney; Z79.4 Long term (current) use of insulin; Z86.010 Personal history of colon polyps; G43.909 Migraine, unspecified, not intractable, without status migrainosus; D72.829 Elevated white blood cell count, unspecified; T38.0X5A Adverse effect of glucocorticoids and synthetic analogues, initial encounter; G89.29 Other chronic pain; M54.9 Dorsalgia, unspecified; R42 Dizziness and giddiness